=== PATIENT | male | born 1950 | race Caucasian/White ===

== ENCOUNTER 2018-04-23 17:38 | Inpatient (IN) ==
--- NOTE | 2018-04-23 18:15 | ED ---
HPI General Chief complaint: Respiratory Symptoms Stated complaint: SOB/Bilat swollen legs start mon Time Seen by Provider: 04/23/18 17:51 History of Present Illness HPI narrative: This patient complains of swelling in his legs and shortness of breath. Duration 3 days. Severity is moderate. He presents with A. fib with RVR with a rate of 160s. He does not have any chest pain pressure tightness or heaviness. No prior history of cardiac arrhythmia. No alleviating factors. No exacerbating factors. He is a 6 pack a day drinker and denies drug use. He was drinking earlier today. He is also cigarette smoker. Denies chronic lung disease Related Data Home Medications Medication Instructions Recorded Confirmed Unable to Obtain Home Meds 04/23/18 04/23/18 Allergies Allergy/AdvReac Type Severity Reaction Status Date / Time celecoxib Allergy Severe Tingling Verified 04/23/18 17:40 Review of Systems ROS: all other systems reviewed are negative PMFSH Medical History Medical History GERD (gastroesophageal reflux disease) (Acute) Gout (Acute) Hypertension (Acute) Social History Social History Substance History: No History of Abuse Smoking Status: Current every day smoker Tobacco Type: Cigarettes How Often Do You Have a Drink Containing Alcohol: 4 or more times a week Recent Travel in [facility] within the Last 8 Weeks: No Recent Out of Country Travel within the Last 8 Weeks: No Immunization History Tetanus Immunization: Unsure Hx Influenza Vaccine This Season: No Exam Narrative Exam Narrative: GENERAL: Well-nourished, well-developed patient with rapid A. fib . SKIN: Focused skin assessment reveals no rash and nodules. Skin is Warm and dry. HEAD: Atraumatic. Normocephalic. EYES: Pupils equal and round. No scleral icterus. No injection or drainage. ENT: No nasal bleeding or discharge. Mucous membranes pink and moist. NECK: Trachea midline. No JVD. CARDIOVASCULAR: Irregularly irregular rhythm. No murmur appreciated. Rate 160s RESPIRATORY: No accessory muscle use. Clear to auscultation. Breath sounds equal bilaterally. GASTROINTESTINAL: Abdomen soft, non-tender, nondistended. Hepatic and splenic margins not palpable. MUSCULOSKELETAL: No obvious deformities. No clubbing. No cyanosis. Symmetric edema the feet and ankles and lower clement areas without redness or warmth . NEUROLOGICAL: Awake and alert. No obvious cranial nerve deficits. Motor grossly within normal limits. Normal speech. PSYCHIATRIC: Appropriate mood and affect; insight and judgment normal. Course Initial Documented Vital Signs Temperature 97.4 F L 04/23/18 17:40 Pulse Rate 145 H 04/23/18 17:40 Respiratory Rate 24 04/23/18 17:40 Blood Pressure 129/97 H 04/23/18 17:40 Pulse Oximetry 95 04/23/18 17:40 Last Documented Vital Signs Temperature 97.4 F L 04/23/18 17:40 Pulse Rate 142 H 04/23/18 20:00 Respiratory Rate 18 04/23/18 20:00 Blood Pressure 137/91 H 04/23/18 20:00 Pulse Oximetry 93 L 04/23/18 20:00 Critical Care Time Critical Care Time: Yes Total Critical Care Time: 80 Attestation: Aggregate critical care time was 80 minutes. Time to perform other separately billable procedures was not included in the critical care time. My time did not include minutes spent treating any other patients simultaneously or on activities that did not directly contribute to the patient's treatment. The services I provided to this patient were to treat and/or prevent clinically significant deterioration that could result in: Cardiopulmonary arrest, myocardial injury, lethal cardiac arrhythmia I provided critical care services requiring my management, as noted below: Chart data review, documentation time, medication orders and management, vital sign assessments/reviewing monitor data, ordering and reviewing lab tests, ordering and interpreting/reviewing x-rays and diagnostic studies, care of the patient and discussion of the patient with the admitting physicians. Medical Decision Making MDM Narrative Medical decision making narrative: IV placed and labs sent. I gave him 20 mg IV Cardizem for rate control I reviewed his EKG which shows A. fib in the 160s I reviewed his chest x-ray shows a hint of pulmonary edema. Lab studies are normal other than his alcohol level of 230 After initial Cardizem dosing his heart rate is down to 140s but still elevated. I gave him a second IV Cardizem dose and I have now initiated a Cardizem drip which we will titrate. Patient will be in intensive care titrating on Cardizem drip. I have reviewed with the hospitalist. Multiple rechecks were necessary. Heart rate did not come down readily as hoped. Lab Data Lab results reviewed: Yes I reviewed the patient's lab results. Result diagrams: 04/23/18 18:05 04/23/18 18:05 Lab Results 04/23/18 04/23/18 Range/Units 18:05 18:05 CBC w Diff Auto diff final WBC 6.8 (4.0-11.0) th/mm3 RBC 4.10 L (4.50-5.90) mil/mm3 Hgb 13.9 (13.0-17.0) gm/dL Hct 42.0 (39.0-51.0) % MCV 102.4 H (80.0-100.0) fL MCH 34.0 (27.0-34.0) pg MCHC 33.2 (32.0-36.0) % RDW 14.6 (11.6-17.2) % Plt Count 226 (150-450) th/mm3 MPV 7.6 (7.0-11.0) fL Neut % (Auto) 59.5 (16.0-70.0) % Lymph % (Auto) 26.6 (9.0-44.0) % [place] % (Auto) 10.0 H (0.0-8.0) % Eos % (Auto) 0.9 (0.0-4.0) % Baso % (Auto) 3.0 H (0.0-2.0) % Neut # (Auto) 4.0 (1.8-7.7) th/mm3 Lymph # (Auto) 1.8 (1.0-4.8) th/mm3 [place] # (Auto) 0.7 (0.0-0.9) th/mm3 Eos # (Auto) 0.1 (0.0-0.4) th/mm3 Baso # (Auto) 0.2 (0.0-0.2) th/mm3 WBC Differential . Differential Comment . Sodium 141 (136-145) meq/L Potassium 4.1 (3.5-5.1) meq/L Chloride 106 (98-107) meq/L Carbon Dioxide 26.1 (21.0-32.0) meq/L Anion Gap 9 (5-15) meq/L BUN 17 (7-18) mg/dL Creatinine 0.84 (0.60-1.30) mg/dL Estimated GFR Greater than 89 (>89) mL/min Random Glucose 96 (74-106) mg/dL Calcium 8.1 L (8.5-10.1) mg/dL Total Creatine Kinase 243 (39-308) U/L CK-MB (CK-2) 1.3 (0.5-3.6) ng/mL Troponin I 0.04 (0.02-0.05) ng/mL Serum Alcohol 210 H (0-5) mg/dL Imaging Data Radiologist's impression: Chest X-Ray 04/23/18 18:00 CONCLUSION: Mild bibasilar airspace opacities. Discharge Plan Discharge Disposition Patient Disposition: 30 Still Patient Discharge Details Diagnosis: Atrial fibrillation with RVR, Alcohol intoxication Physicians Team ED Provider: Uriah Porras Primary Care Provider: Dequan Hernandez Rxs /Orders / Referrals /Forms Prescriptions: No Action Unable to Obtain Home Meds RF: 0 Discharge Interventions Interventions: Vital Signs Last Done: 04/23/18 20:00 Status ED Status: Admitted Patient
[2018-04-23 18:17] LABS: Baso # (Auto) 0.2 th/mm3 (0.0-0.2); Eos # (Auto) 0.1 th/mm3 (0.0-0.4); Eos % (Auto) 0.9 % (0.0-4.0); Hemoglobin 13.9 gm/dL (13.0-17.0); Lymph # (Auto) 1.8 th/mm3 (1.0-4.8); Lymph % (Auto) 26.6 % (9.0-44.0); Mean Corpuscular HGB Conc 33.2 % (32.0-36.0); Mean Corpuscular Volume 102.4 fL (80.0-100.0); Mean Platelet Volume 7.6 fL (7.0-11.0); Mono # (Auto) 0.7 th/mm3 (0.0-0.9); Neut % (Auto) 59.5 % (16.0-70.0); Platelet Count 226 th/mm3 (150-450); Red Cell Distribution Width 14.6 % (11.6-17.2); White Blood Count 6.8 th/mm3 (4.0-11.0)
[2018-04-23 18:25] LABS: Chloride 106 meq/L (98-107); Potassium 4.1 meq/L (3.5-5.1); Sodium 141 meq/L (136-145)
[2018-04-23 18:28] LABS: Calcium 8.1 mg/dL (8.5-10.1)
--- NOTE | 2018-04-23 18:28 | XR ---
EXAM DATE: 04/23/2018 6:15 PM EDT AGE/SEX: 67 years / Male INDICATIONS: Chest pain and shortness of breath. CLINICAL DATA: This is the patient's initial encounter. Patient reports that signs and symptoms have been present for 2 days and indicates a pain score of 5/10. MEDICAL/SURGICAL HISTORY: Hypertension. None. COMPARISON: No prior exams available for comparison. FINDINGS: Mild bibasilar infiltrate, right more so the left. Early or mild pneumonia possible in the proper cli nical setting. No pleural effusion. No pneumothorax. Heart size within normal limits. CONCLUSION: Mild bibasilar airspace opacities. Electronically signed by: Ken Velazquez MD 04/23/2018 6:26 PM EDT
[2018-04-23 18:29] LABS: Anion Gap 9 meq/L (5-15); Blood Urea Nitrogen 17 mg/dL (7-18); Carbon Dioxide 26.1 meq/L (21.0-32.0); Glucose,Random 96 mg/dL (74-106)
[2018-04-23 18:32] LABS: Glomerular Filtration Rate Greater Than 89 mL/min (>89)
[2018-04-23 18:35] LABS: Creatine Kinase 243 U/L (39-308)
[2018-04-23 18:37] LABS: Troponin I 0.04 ng/mL (0.02-0.05)
[2018-04-23 18:40] LABS: Alcohol 210 mg/dL (0-5)
[2018-04-23 18:53] LABS: Creatine Kinase MB 1.3 ng/mL (0.5-3.6)
[2018-04-23] MEDS: dilTIAZem Inj 125 MG in Sodium Chlor 0.9% Inj 100 ML IV.CONT PRN (19:45)
[2018-04-23 20:32] LABS: Magnesium 2.3 mg/dL (1.5-2.5)
[2018-04-23] MEDS: Enoxaparin Inj 100 MG/ML Syringe SQ SCH (20:45)
--- NOTE | 2018-04-23 21:58 | ECG ---
Date Performed: 04/23/2018 Time Performed: 17:54:27 PTAGE: 67 years EKG: ATRIAL FIBRILLATION WITH RAPID VENTRICULAR RESPONSE NONSPECIFIC ST & T-WAVE ABNORMALITY ABN ORMAL RHYTHM ECG PREVIOUS TRACING : 09/30/2013 03.02 Compared to previous tracing, SR no longer present DOCTOR: Kate Dickson Interpretating Date/Time 04/23/2018 21:56:51
[2018-04-23] MEDS: LORazepam 1 MG Tablet PO PRN (23:05)
[2018-04-23] MEDS: Metoprolol Inj 5 MG/5 ML Vial IV.PUSH PRN ×2 (23:45→23:52)
[2018-04-24] MEDS: Metoprolol Inj 5 MG/5 ML Vial IV.PUSH PRN ×3 (00:12→04:22)
[2018-04-24] MEDS: LORazepam 1 MG Tablet PO PRN (02:58)
[2018-04-24] MEDS: dilTIAZem Inj 125 MG in Sodium Chlor 0.9% Inj 100 ML IV.CONT PRN (03:03)
[2018-04-24] MEDS ORDERED: Metoprolol Tartrate 25 MG Tablet PO ONE (03:35)
[2018-04-24 05:45] LABS: Chloride 105 meq/L (98-107); Potassium 4.1 meq/L (3.5-5.1); Sodium 140 meq/L (136-145)
[2018-04-24 05:47] LABS: Calcium 7.9 mg/dL (8.5-10.1)
[2018-04-24 05:48] LABS: Anion Gap 8 meq/L (5-15); Blood Urea Nitrogen 16 mg/dL (7-18); Glucose,Random 103 mg/dL (74-106)
[2018-04-24 05:51] LABS: Glomerular Filtration Rate Greater Than 89 mL/min (>89)
[2018-04-24 05:56] LABS: Hematocrit 37.8 % (39.0-51.0); Hemoglobin 12.6 gm/dL (13.0-17.0); Mean Corpuscular HGB Conc 33.5 % (32.0-36.0); Mean Corpuscular Hemoglobin 34.3 pg (27.0-34.0); Mean Corpuscular Volume 102.5 fL (80.0-100.0); Mean Platelet Volume 7.8 fL (7.0-11.0); Platelet Count 209 th/mm3 (150-450); Red Blood Count 3.69 mil/mm3 (4.50-5.90); Red Cell Distribution Width 14.5 % (11.6-17.2); White Blood Count 7.3 th/mm3 (4.0-11.0)
--- NOTE | 2018-04-24 08:06 | P.HPIM ---
History of Present Illness Primary Care Physician: Dequan Hernandez MD Chief Complaint: Shortness of breath and edema History of Present Illness: This patient is a 67-year-old woman with a history of hypertension who admits increased shortness of breath and edema in the lower extremity for the last 3 days. Was severe enough for him to come to the hospital. He had no previous episodes of this and no cardiac history other than hypertension. He drinks quite a bit of alcohol daily and admits he has been trying to "cut back". Patient denies any chest pain or tightness. He has not had any syncopal episodes and comes to the emergency room for further evaluation. On my review of his x-ray there is quite a bit of vascular congestion. His EKG on my review does show atrial fibrillation with rapid ventricular response. Overnight he has been on Cardizem and appears to have improvement in his cardiac rate but still is quite edematous and shortness of breath with 93% on 2 L nasal cannula. Patient been admitted to the hospital for these reasons. - Diagnosis (1) Atrial fibrillation with RVR (2) Alcohol intoxication Inpatient Certification: I certify that the inpatient services were ordered in accordance with Medicare regulations governing the order. This includes certification that hospital inpatient services are reasonable and necessary and in the case of services not specified as inpatient-only under 42 CFR 419.22(n), that they are appropriately provided as inpatient services in accordance to with the 2-midnight benchmark under 43 CFR 412.3(e) Estimated Total Length of Stay (Days): 2 Plans for Post Hospital Care: Not yet determined [facility] - History History Provided By: Patient - Medical History Medical History: Medical History (Last Reviewed 04/24/18 @ 08:00 by Laney Garcia MD) Denies alcohol consumption GERD (gastroesophageal reflux disease) Gout Hypertension - Surgical History Surgical History: Surgical History (Last Updated 04/24/18 @ 08:01 by Laney Garcia MD) No history of previous surgery - Family History Family History: Family History (Last Updated 04/24/18 @ 08:01 by Laney Garcia MD) Other Afib CVA (cerebral vascular accident) - Tobacco History Second Hand Smoke Exposure: No Tobacco Use In Past 30 Days: Yes Smoking Status: Current every day smoker Tobacco Type: Cigarettes - Alcohol History How Often Do You Have a Drink Containing Alcohol: 4 or more times a week (1/5 of vodka) - Substance Use History Substance History: Active Abuse - Substance Use Type Alcohol Status: Active Route Used: By Mouth Reason for Use: Calm Down - Travel History Recent Travel in the [place] Within the Last 8 Weeks: No Recent Travel Out of the Country Within the Last 8 Weeks: No - Immunization History Tetanus Immunization: Unsure Hx Influenza Vaccine This Season: No Medications and Allergies Active Medications: Active Medications Clonidine HCl (Catapres) 0.1 mg PO Q6H PRN PRN Reason: For SBP >/= 180, DBP >/= 100 Enoxaparin Sodium (Lovenox Inj) 100 mg SQ Q12H IDALIA Last Admin: 04/23/18 20:45 Dose: 100 mg Flumazenil (Romazecon Inj) 0.2 mg IV.PUSH Q1M PRN PRN Reason: OVERSEDATION Folic Acid (Folic Acid) 1 mg PO DAILY [facility] Stop: 04/29/18 08:59 Haloperidol Lactate (Haldol Inj) 1 mg IV.PUSH Q15M PRN PRN Reason: for severe agitation Diltiazem HCl 125 mg/ Sodium (Chloride) 125 mls @ 5 mls/hr IV.CONT TITRATE PRN ; Protocol PRN Reason: Per Protocol Last Admin: 04/24/18 03:03 Dose: 15 mg/hr, 15 mls/hr Lorazepam (Ativan) 1 mg PO Q4H PRN PRN Reason: for CIWA 8-10 Last Admin: 04/24/18 02:58 Dose: 1 mg Lorazepam (Ativan) 2 mg PO Q2H PRN PRN Reason: for CIWA 11-14 Last Admin: 04/24/18 06:36 Dose: 2 mg Lorazepam (Ativan Inj) 2 mg IV.PUSH Q2H PRN PRN Reason: for CIWA 11-14 Lorazepam (Ativan Inj) 2 mg IV.PUSH Q1H PRN PRN Reason: for CIWA 15-20 Lorazepam (Ativan Inj) 2 mg IV.PUSH Q15M PRN PRN Reason: for CIWA > 20 Lorazepam (Ativan Inj) 1 mg IV.PUSH Q4H PRN PRN Reason: for CIWA 8-10 Metoprolol Tartrate (Lopressor) 25 mg PO BID [facility] Multivitamins/Minerals (Theragran-M) 1 tab PO DAILY IDALIA Stop: 04/29/18 08:59 Sodium Chloride (Ns Flush) 2 ml IV.FLUSH PRN PRN PRN Reason: FLUSH AFTER USING IV ACCESS Sodium Chloride (Ns Flush) 2 ml IV.FLUSH BID IDALIA Last Admin: 04/23/18 23:07 Dose: Not Given Thiamine HCl (Vitamin B1) 100 mg PO DAILY IDALIA Allergies Allergy/AdvReac Type Severity Reaction Status Date / Time celecoxib Allergy Severe Tingling Verified 04/23/18 17:40 Home Medications Medication Instructions Recorded Confirmed Type Unable to Obtain Home Meds 04/23/18 04/23/18 History Exam Vital signs: Vital Signs 04/23/18 17:40 04/23/18 17:59 04/23/18 18:40 Temperature 97.4 F L Pulse Rate 145 H 168 H 140 H Respiratory Rate 24 20 20 Blood Pressure 129/97 H 171/86 H 109/98 H Pulse Oximetry 95 98 96 04/23/18 19:00 04/23/18 20:00 04/23/18 20:18 Temperature Pulse Rate 148 H 142 H 137 H Respiratory Rate 18 18 18 Blood Pressure 117/91 H 137/91 H 100/70 Pulse Oximetry 98 93 L 95 04/23/18 21:00 04/23/18 22:47 04/23/18 23:21 Temperature 98.7 F Pulse Rate 139 H 153 H 165 H Respiratory Rate 18 22 22 Blood Pressure 99/55 L 164/89 H 164/89 H Pulse Oximetry 94 L 94 L 94 L 04/23/18 23:22 04/24/18 00:00 04/24/18 00:50 Temperature 98.7 F Pulse Rate 165 H 125 H 118 H Respiratory Rate 22 22 Blood Pressure 111/74 107/65 Pulse Oximetry 94 L 04/24/18 01:00 04/24/18 01:30 04/24/18 02:00 Temperature Pulse Rate 114 H 114 H 114 H Respiratory Rate 31 H 34 H 24 Blood Pressure 102/73 107/65 125/89 Pulse Oximetry 92 L 93 L 93 L 04/24/18 03:00 04/24/18 04:00 04/24/18 04:23 Temperature Pulse Rate 124 H 120 H 116 H Respiratory Rate 26 H 25 H Blood Pressure 116/79 114/83 117/81 Pulse Oximetry 91 L 92 L 94 L 04/24/18 04:28 04/24/18 04:41 04/24/18 05:00 Temperature Pulse Rate 112 H 102 H 109 H Respiratory Rate 20 20 20 Blood Pressure 128/82 128/72 126/83 Pulse Oximetry 96 95 95 04/24/18 06:01 04/24/18 07:36 Temperature Pulse Rate 112 H Respiratory Rate 26 H Blood Pressure 140/90 Pulse Oximetry 95 Intake & Output 04/23/18 04/24/18 04/24/18 18:59 06:59 18:59 Intake Total 125 / 125 Output Total 500 / 500 Balance -375 / -375 Weight 100 kg 101.5 kg Intake: IV 125 / 125 Cardizem Inj 125 MG In NS Inj 125 / 125 100 ML @ 5 MG/HR 5 mls/hr IV. CONT TITRATE PRN Rx#:[id number] Output: Urine 500 / 500 Other: Date of Last Bowel Movement 04/23/18 Weight On Admission 100 kg Narrative: GENERAL: Well-nourished, well-developed patient. Complaining of shortness of breath SKIN: Warm and dry. HEAD: Normocephalic. EYES: No scleral icterus. No injection or drainage. NECK: Supple, trachea midline. No JVD or lymphadenopathy. CARDIOVASCULAR: Atrial fibrillation with rapid ventricular response, no gallops or rubs appreciated, systolic murmur RESPIRATORY: Crackles in the bases bilaterally GASTROINTESTINAL: Abdomen soft, non-tender, nondistended. MUSCULOSKELETAL: No cyanosis, there is +3 bilateral lower extremity edema BACK: Nontender without obvious deformity. No CVA tenderness. NEUROLOGICAL: Awake and alert. Cranial nerves II through XII intact. Motor and sensory grossly within normal limits. Five out of 5 muscle strength in all muscle groups. Normal speech. Results - Labs CBC & Chem 7: 04/24/18 04:58 04/24/18 04:58 Labs: Short CBC 04/23/18 04/24/18 Range/Units 18:05 04:58 WBC 6.8 7.3 (4.0-11.0) th/mm3 Hgb 13.9 12.6 L (13.0-17.0) gm/dL Hct 42.0 37.8 L (39.0-51.0) % Plt Count 226 209 (150-450) th/mm3 BMP 04/23/18 04/24/18 18:05 04:58 Sodium 141 140 Potassium 4.1 4.1 Chloride 106 105 Carbon Dioxide 26.1 27.0 BUN 17 16 Creatinine 0.84 0.74 Calcium 8.1 L 7.9 L Cardiac Enzymes 04/23/18 Range/Units 18:05 Total Creatine Kinase 243 (39-308) U/L CK-MB (CK-2) 1.3 (0.5-3.6) ng/mL Troponin I 0.04 (0.02-0.05) ng/mL - Imaging Impressions Chest X-Ray 04/23/18 18:00 CONCLUSION: Mild bibasilar airspace opacities. Caprini VTE Risk Assessment Caprini VTE Risk Assessment: Moderate/High Risk (score >= 2) Caprini Risk Assessment Model: Point Value = 1 Point Value = 2 Point Value = 3 Point Value = 5 Age 41-60 Minor surgery BMI > 25 kg/m2 Swollen legs Varicose veins or History of unexplained or recurrent spontaneous Oral contraceptives or hormone replacement Sepsis (< 1 month) Serious lung disease, including pneumonia (< 1 month) Abnormal pulmonary function Acute myocardial infarction Congestive heart failure (< 1 month) History of inflammatory bowel disease Medical patient at bed rest Age 61-74 Arthroscopic surgery Major open surgery (> 45 min) Laparoscopic surgery (> 45 min) Malignancy Confined to bed (> 72 hours) Immobilizing plaster cast Central venous access Age >= 75 History of VTE Family history of VTE Factor V Leiden Prothrombin [id number] Lupus anticoagulant Anticardiolipin antibodies Elevated serum homocysteine Heparin-induced thrombocytopenia Other congenital or acquired thrombophilia Stroke (< 1 month) Elective arthroplasty Hip, pelvis, or leg fracture Acute spinal cord injury (< 1 month) Prophylaxis Regimen: Total Risk Factor Score Risk Level Prophylaxis Regimen 0-1 Low Early ambulation 2 Moderate Order ONE of the following: *Sequential Compression Device (SCD) *Heparin 5000 units SQ BID 3-4 Higher Order ONE of the following medications: *Heparin 5000 units SQ TID *Enoxaparin/Lovenox 40 mg SQ daily (WT < 150 kg, CrCl > 30 mL/min) *Enoxaparin/Lovenox 30 mg SQ daily (WT < 150 kg, CrCl > 10-29 mL/min) *Enoxaparin/Lovenox 30 mg SQ BID (WT < 150 kg, CrCl > 30 mL/min) AND/OR *Sequential Compression Device (SCD) 5 or more Highest Order ONE of the following medications: *Heparin 5000 units SQ TID (Preferred with Epidurals) *Enoxaparin/Lovenox 40 mg SQ daily (WT < 150 kg, CrCl > 30 mL/min) *Enoxaparin/Lovenox 30 mg SQ daily (WT < 150 kg, CrCl > 10-29 mL/min) *Enoxaparin/Lovenox 30 mg SQ BID (WT < 150 kg, CrCl > 30 mL/min) AND *Sequential Compression Device (SCD) Assessment and Plan - Assessment (1) Atrial fibrillation with RVR Code(s): I48.91 - Unspecified atrial fibrillation Status: Acute Plan: Seen with new onset atrial fibrillation which appears to be improved on the diltiazem with oral Lopressor, heart rates in the low 100s. Patient admits drinking alcohol daily despite being on medication "to stop drinking alcohol ". He has never had cardiac problems other than hypertension. We will continue with titrating medications for blood pressure, follow-up echocardiogram for edema and continue to diurese Cardiology consultation pending Follow-up electrolytes (2) Alcohol intoxication Code(s): F10.929 - Alcohol use, unspecified with intoxication, unspecified Status: Acute Plan: Alcohol level 210 on arrival, continue with CIWA protocol This may contribute to his atrial fibrillation and edema, workup in progress - Plan Discharge Planning: Transfer to intermediate critical care H&P: Quality - VTE Deep Vein Thrombosis/Pulmonary Embolism Present on Admission: No (2) Alcohol intoxication Qualifiers: Complication of substance-induced condition: with unspecified complication Qualified Code(s): F10.929 - Alcohol use, unspecified with intoxication, unspecified
[2018-04-24] MEDS ORDERED: Metoprolol Tartrate 25 MG Tablet PO SCH (09:00)
[2018-04-24] MEDS: Enoxaparin Inj 100 MG/ML Syringe SQ SCH ×2 (09:25→20:51)
[2018-04-24] MEDS: Allopurinol 300 MG Tablet PO SCH (09:25)
[2018-04-24] MEDS: Multivitamin/Minerals Therapeutic Tablet PO SCH (09:25)
[2018-04-24] MEDS: Folic Acid 1 MG Tablet PO SCH (09:26)
--- NOTE | 2018-04-24 18:35 | MB ---
cc: Anabel Singleton MD DATE: 04/24/2018 REASON FOR CONSULTATION: Atrial fibrillation with rapid ventricular response. HISTORY OF PRESENT ILLNESS: Mr. Vaughn is a 67-year-old man who presented to the emergency room with shortness of breath and lower extremity edema over the last 3 days. He denies any prior cardiac history beyond hypertension. He did follow with Dr. Gibson back in 2009 for a mildly abnormal stress test. The patient was found to have atrial fibrillation with rapid ventricular rate on presentation and Cardiology was subsequently consulted. The patient is a bit lethargic now. The history is per the records. ALLERGIES: CELEBREX AND PEPCID. CURRENT MEDICATIONS: Per the record. PAST MEDICAL HISTORY: Significant for chest pain, GERD, gout, hypertension, and tobacco use. FAMILY HISTORY: Positive for atrial fibrillation. SOCIAL HISTORY: The patient is a former smoker and is . REVIEW OF SYSTEMS: Unable. PHYSICAL EXAMINATION: VITAL SIGNS: 122, 30, 132/80. GENERAL: He is an overweight man. He is in no apparent distress. He is a bit lethargic. NECK: Free from JVD. LUNGS: Quite decreased. CARDIOVASCULAR: He has an irregular, tachycardic rhythm. ABDOMEN: Soft. EXTREMITIES: Have 1+ edema. Telemetry - shows atrial fibrillation with rapid ventricular rate. LABORATORY VALUES: Significant for a BNP of 254 and creatinine of 0.84. IMAGING STUDIES: Chest x-ray shows mild bibasilar airspace opacities. IMPRESSION AND RECOMMENDATIONS: Atrial fibrillation - the patient does have rapid ventricular rate. I do agree with starting him on the beta chrissy for long-term control, particularly as we do not have his ejection fraction yet. Additionally, the Cardizem is still running GTT. The patient is on Lovenox for anticoagulation. This etiology of the atrial fibrillation is not overtly clear as he does have a family history, alcohol abuse, and hypertension. ETOH - this is being managed by the primary team. Edema - patient may have some mild heart failure with the elevated BNP and edema. Conservative measures at this time while we await the results of the echo. MD SHEYLA Santos/SADAF , 06:17 PM , 06:24 PM
[2018-04-24] MEDS: Metoprolol Tartrate 25 MG Tablet PO SCH ×2 (19:11→21:30)
--- NOTE | 2018-04-24 19:46 | ECHRPT ---
Indication: Persistent atrial fibrillation CONCLUSIONS The left ventricular systolic function is low normal with an estimated ejection fraction in the rang e of 50- 55%. Wall thickness is measured at the upper limits of normal. Normal left ventricular size. Mild mitral annular thickening. Aortic valve is not well visualized. TV is poorly visualized. The pulmonary valve is not well visualized. The inferior vena cava is not visualized. BP: / HR: Rhythm: Atrial fibrillation MEASUREMENTS (Male / Female) Normal Values Technical Quality:Poor 2D ECHO LV Diastolic Diameter PLAX 4.8 cm 4.2 - 5.9 / 3.9 - 5.3 cm LV Systolic Diameter PLAX 3.8 cm IVS Diastolic Thickness 1.1 cm 0.6 - 1.0 / 0.6 - 0.9 cm LVPW Diastolic Thickness 1.1 cm 0.6 - 1.0 / 0.6 - 0.9 cm LV Relative Wall Thickness 0.4 LVOT Diameter 2.0 cm M-MODE Aortic Root Diameter MM 2.8 cm LA Systolic Diameter MM 3.9 cm LA Ao Ratio MM 1.4 AV Cusp Separation MM 2.0 cm DOPPLER AV Peak Velocity 162.0 cm/s AV Peak Gradient 10.5 mmHg LVOT Peak Velocity 80.9 cm/s LVOT Peak Gradient 2.6 mmHg AV Area Cont Eq pk 1.6 cm Mitral E Point Velocity 95.8 cm/s FINDINGS LEFT VENTRICLE The left ventricular systolic function is low normal with an estimated ejection fraction in the rang e of 50- 55%. Wall thickness is measured at the upper limits of normal. Normal left ventricular size. RIGHT VENTRICLE Normal right ventricular size and systolic function. LEFT ATRIUM The left atrial size is normal. RIGHT ATRIUM The right atrial size is normal. ATRIAL SEPTUM Normal atrial septal thickness without atrial level shunting by limited color doppler interrogation. AORTA The aortic root and proximal ascending aorta are normal in size on limited imaging. MITRAL VALVE No mitral valve stenosis or regurgitation. Mild mitral annular thickening. AORTIC VALVE Aortic valve is not well visualized. No aortic valve stenosis or regurgitation. TRICUSPID VALVE TV is poorly visualized. No tricuspid valve stenosis or regurgitation. PULMONARY VALVE The pulmonary valve is not well visualized. VESSELS The inferior vena cava is not visualized. PERICARDIUM No pericardial effusion. Garland Yi MD (Electronically Signed) Final Date:24 April 2018 19:45
[2018-04-24] MEDS: Haloperidol Inj 5 MG/ML Ampul IV.PUSH PRN ×2 (21:30→23:15)
[2018-04-25] MEDS: Haloperidol Inj 5 MG/ML Ampul IV.PUSH PRN (01:36)
[2018-04-25] MEDS: dilTIAZem Inj 125 MG in Sodium Chlor 0.9% Inj 100 ML IV.CONT PRN ×3 (04:31→21:19)
[2018-04-25] MEDS: Metoprolol Inj 5 MG/5 ML Vial IV.PUSH PRN ×3 (04:31→04:59)
[2018-04-25] MEDS: Metoprolol Tartrate 25 MG Tablet PO SCH (06:50)
--- NOTE | 2018-04-25 08:03 | P.PNCA ---
Subjective Interval history: PT sedated Physical Exam Vital signs: Vital Signs 04/24/18 08:30 04/24/18 09:00 04/24/18 09:30 Temperature Pulse Rate 108 H 112 H 112 H Respiratory Rate 27 H 37 H 61 H Blood Pressure 124/88 123/68 134/86 Pulse Oximetry 94 L 93 L 94 L 04/24/18 10:00 04/24/18 10:30 04/24/18 11:00 Temperature 98.8 F Pulse Rate 110 H 116 H 116 H Respiratory Rate 27 H 21 24 Blood Pressure 108/62 122/74 98/51 L Pulse Oximetry 94 L 92 L 04/24/18 11:30 04/24/18 12:00 04/24/18 12:28 Temperature Pulse Rate 112 H 112 H 112 H Respiratory Rate 28 H 34 H 36 H Blood Pressure 94/73 L 75/63 L Pulse Oximetry 91 L 91 L 04/24/18 12:32 04/24/18 13:00 04/24/18 13:30 Temperature Pulse Rate 118 H 112 H 114 H Respiratory Rate 41 H 57 H 50 H Blood Pressure 142/95 H 120/67 120/67 Pulse Oximetry 04/24/18 14:00 04/24/18 14:02 04/24/18 14:59 Temperature 98.2 F Pulse Rate 116 H 124 H 118 H Respiratory Rate 32 H 34 H 32 H Blood Pressure 131/63 115/85 Pulse Oximetry 99 99 95 04/24/18 15:00 04/24/18 16:00 04/24/18 16:23 Temperature Pulse Rate 118 H 118 H 120 H Respiratory Rate 32 H 30 H 22 Blood Pressure 118/83 Pulse Oximetry 94 L 97 98 04/24/18 16:59 04/24/18 17:00 04/24/18 17:59 Temperature Pulse Rate 120 H 122 H 134 H Respiratory Rate 30 H 30 H 39 H Blood Pressure 137/86 140/79 Pulse Oximetry 96 97 96 04/24/18 18:00 04/24/18 19:00 04/24/18 19:45 Temperature Pulse Rate 132 H 136 H Respiratory Rate 39 H 35 H Blood Pressure 165/83 H Pulse Oximetry 95 96 95 04/24/18 20:00 04/24/18 20:04 04/24/18 20:14 Temperature 98.6 F Pulse Rate 148 H 144 H 142 H Respiratory Rate 37 H 32 H Blood Pressure 158/92 H 146/98 H Pulse Oximetry 95 93 L 97 04/24/18 21:00 04/24/18 22:04 04/24/18 23:04 Temperature Pulse Rate 150 H 144 H 142 H Respiratory Rate 24 36 H 29 H Blood Pressure 166/92 H 142/78 H 139/104 H Pulse Oximetry 95 96 94 L 04/25/18 00:06 04/25/18 01:00 04/25/18 01:18 Temperature 97.6 F Pulse Rate 128 H 132 H Respiratory Rate 32 H 22 Blood Pressure 108/65 132/99 H Pulse Oximetry 96 95 95 04/25/18 03:04 04/25/18 03:53 04/25/18 04:04 Temperature Pulse Rate 140 H 152 H 146 H Respiratory Rate 29 H 22 33 H Blood Pressure 124/78 124/78 139/85 Pulse Oximetry 96 95 97 04/25/18 04:56 04/25/18 05:00 04/25/18 06:00 Temperature Pulse Rate 121 H 118 H 108 H Respiratory Rate 26 H 22 Blood Pressure 118/72 104/68 104/68 Pulse Oximetry 98 97 97 Intake & Output 04/24/18 04/25/18 04/25/18 18:59 06:59 18:59 Intake Total 685 / 685 Output Total 510 / 510 1050 / 1050 Balance 175 / 175 -1050 / -1050 Weight 97.5 kg Intake: IV 125 / 125 Cardizem Inj 125 MG In NS Inj 125 / 125 100 ML @ 5 MG/HR 5 mls/hr IV. CONT TITRATE PRN Rx#:[id number] Oral 560 / 560 Output: Urine 510 / 510 1050 / 1050 Other: Date of Last Bowel Movement 04/24/18 04/24/18 # Bowel Movements 2 - Routine Respiratory Exam Present: CTA bilaterally - Routine Cardiovascular Exam Present: irregularly irregular - Routine Extremities Exam Comments: no edema - Urinary Catheter Management Indwelling Urethral Catheter Cath placed during this visit: yes Reason for continuing: Gross Hematuria Insertion date: 04/25/18 Insertion time: 01:12 Assessment and Plan - Plan AF- fair rate control on metoprolol and dilt gtt -increase PO metoprolol and wean dilt -ECHO EF normal ETOH- [per primary team
[2018-04-25] MEDS: Folic Acid 1 MG Tablet PO SCH (08:21)
[2018-04-25] MEDS: Multivitamin/Minerals Therapeutic Tablet PO SCH (08:27)
[2018-04-25] MEDS: Allopurinol 300 MG Tablet PO SCH (08:27)
[2018-04-25] MEDS: Enoxaparin Inj 100 MG/ML Syringe SQ SCH ×2 (08:28→21:17)
[2018-04-25] MEDS: LORazepam 1 MG Tablet PO PRN (09:27)
[2018-04-25] MEDS: Metoprolol Tartrate 50 MG Tablet PO SCH ×3 (09:27→21:18)
--- NOTE | 2018-04-25 09:59 | P.PNIM ---
Subjective Interval history: Patient seen and evaluated today in follow-up for atrial fibrillation, new onset and for alcohol withdrawal with some hallucinations today. Still has required quite a bit of Ativan. Discussed with spouse at bedside. Patient did have Garcia trauma yesterday because of pulling it out. Had a blood irrigation done and is currently clear Physical Exam Vital signs: Vital Signs 04/24/18 10:00 04/24/18 10:30 04/24/18 11:00 Temperature 98.8 F Pulse Rate 110 H 116 H 116 H Respiratory Rate 27 H 21 24 Blood Pressure 108/62 122/74 98/51 L Pulse Oximetry 94 L 92 L 04/24/18 11:30 04/24/18 12:00 04/24/18 12:28 Temperature Pulse Rate 112 H 112 H 112 H Respiratory Rate 28 H 34 H 36 H Blood Pressure 94/73 L 75/63 L Pulse Oximetry 91 L 91 L 04/24/18 12:32 04/24/18 13:00 04/24/18 13:30 Temperature Pulse Rate 118 H 112 H 114 H Respiratory Rate 41 H 57 H 50 H Blood Pressure 142/95 H 120/67 120/67 Pulse Oximetry 04/24/18 14:00 04/24/18 14:02 04/24/18 14:59 Temperature 98.2 F Pulse Rate 116 H 124 H 118 H Respiratory Rate 32 H 34 H 32 H Blood Pressure 131/63 115/85 Pulse Oximetry 99 99 95 04/24/18 15:00 04/24/18 16:00 04/24/18 16:23 Temperature Pulse Rate 118 H 118 H 120 H Respiratory Rate 32 H 30 H 22 Blood Pressure 118/83 Pulse Oximetry 94 L 97 98 04/24/18 16:59 04/24/18 17:00 04/24/18 17:59 Temperature Pulse Rate 120 H 122 H 134 H Respiratory Rate 30 H 30 H 39 H Blood Pressure 137/86 140/79 Pulse Oximetry 96 97 96 04/24/18 18:00 04/24/18 19:00 04/24/18 19:45 Temperature Pulse Rate 132 H 136 H Respiratory Rate 39 H 35 H Blood Pressure 165/83 H Pulse Oximetry 95 96 95 04/24/18 20:00 04/24/18 20:04 04/24/18 20:14 Temperature 98.6 F Pulse Rate 148 H 144 H 142 H Respiratory Rate 37 H 32 H Blood Pressure 158/92 H 146/98 H Pulse Oximetry 95 93 L 97 04/24/18 21:00 04/24/18 22:04 04/24/18 23:04 Temperature Pulse Rate 150 H 144 H 142 H Respiratory Rate 24 36 H 29 H Blood Pressure 166/92 H 142/78 H 139/104 H Pulse Oximetry 95 96 94 L 04/25/18 00:06 04/25/18 01:00 04/25/18 01:18 Temperature 97.6 F Pulse Rate 128 H 132 H Respiratory Rate 32 H 22 Blood Pressure 108/65 132/99 H Pulse Oximetry 96 95 95 04/25/18 03:04 04/25/18 03:53 04/25/18 04:04 Temperature Pulse Rate 140 H 152 H 146 H Respiratory Rate 29 H 22 33 H Blood Pressure 124/78 124/78 139/85 Pulse Oximetry 96 95 97 04/25/18 04:56 04/25/18 05:00 04/25/18 06:00 Temperature Pulse Rate 121 H 118 H 108 H Respiratory Rate 26 H 22 Blood Pressure 118/72 104/68 104/68 Pulse Oximetry 98 97 97 04/25/18 08:00 04/25/18 09:00 Temperature 97.7 F 98.4 F Pulse Rate Respiratory Rate Blood Pressure Pulse Oximetry Intake & Output 04/24/18 04/25/18 04/25/18 18:59 06:59 18:59 Intake Total 685 / 685 240 / 240 Output Total 510 / 510 1050 / 1050 1000 / 1000 Balance 175 / 175 -1050 / -1050 -760 / -760 Weight 97.5 kg Intake: IV 125 / 125 Cardizem Inj 125 MG In NS Inj 125 / 125 100 ML @ 5 MG/HR 5 mls/hr IV. CONT TITRATE PRN Rx#:[id number] Oral 560 / 560 240 / 240 Output: Urine 510 / 510 1050 / 1050 1000 / 1000 Other: Date of Last Bowel Movement 04/24/18 04/24/18 # Bowel Movements 2 - Urinary Catheter Management Indwelling Urethral Catheter Cath placed during this visit: yes Reason for continuing: Gross Hematuria Insertion date: 04/25/18 Insertion time: 01:12 Results - Labs CBC & Chem 7: 04/24/18 04:58 04/24/18 04:58 Laboratory Results - last 24 hr 04/25/18 08:16 POC Glucose 129 H Assessment and Plan - Assessment (1) Atrial fibrillation with RVR Code(s): I48.91 - Unspecified atrial fibrillation Status: Acute Plan: Seen with new onset atrial fibrillation which appears to be improved on the diltiazem gtt with oral increased Lopressor, Patient also appears to be going through DTs which may give him some tachycardia Echo unremarkable but poor quality Continue Lovenox Wean diltiazem (2) Alcohol intoxication Code(s): F10.929 - Alcohol use, unspecified with intoxication, unspecified Status: Acute Plan: Now going through withdrawal. Discussed with at bedside. Patient has been in rehab prior to this. She is interested in further rehab efforts. This time will continue with evaluation for a [facility] protocol Continue with supportive care (3) Hematuria Code(s): R31.9 - Hematuria, unspecified Status: Acute Plan: Patient did pull out his urinary catheter overnight Bladder irrigation has cleared Urology consult pending - Plan Discharge Planning: Transfer to intermediate critical care (2) Alcohol intoxication Qualifiers: Complication of substance-induced condition: with unspecified complication Qualified Code(s): F10.929 - Alcohol use, unspecified with intoxication, unspecified
--- NOTE | 2018-04-25 21:42 | MB ---
cc: Negro Zepeda MD DATE: 04/25/2018 REASON FOR CONSULTATION: 1. Gross hematuria following traumatic Garcia catheter. 2. History of prostate cancer. HISTORY OF PRESENT ILLNESS: The patient is a 67-year-old male with a history of prostate cancer, status post external beam radiation in the past, who was admitted with alcohol intoxication and DTs. Last night, he had a Garcia catheter placed due to having DTs and being in the ICU. Overnight last night, he became confused and acutely pulled on his Garcia catheter and ripped it out, causing a significant amount of blood in his urine. A fresh 3-way Garcia catheter was then placed and the patient was started on CBI. Since that time, his urine has cleared up and currently draining clear yellow urine. The patient is lethargic and confused and is not the best historian, but has been seen by Dr. Hernandez in the past for his prostate cancer, but not recently. The patient denies having previous blood in his urine. He also denies a history of urinary tract infections or kidney stones. Currently, he denies abdominal pain, flank pain, fevers, chills, nausea, vomiting. PAST MEDICAL HISTORY: Significant for prostate cancer, GERD, gout, hypertension. PAST SURGICAL HISTORY: Circumcision. FAMILY HISTORY: Denies urolithiasis or genitourinary malignancies. CURRENT MEDICATIONS: Include allopurinol, Bumex, folic acid, lorazepam, Lovenox, Protonix. ALLERGIES: CELEBREX. REVIEW OF SYSTEMS: See HPI. All other systems reviewed and otherwise are negative. PHYSICAL EXAMINATION: VITAL SIGNS: Temperature 97.7, pulse 100, BP 120/70, respiratory rate 22, saturating 97% on room air. GENERAL: He is awake and alert but confused, in no apparent distress, answers questions appropriately. HEAD: Normocephalic, atraumatic. EYES: No scleral icterus. Extraocular muscles intact. NECK: Supple. Trachea is midline. No JVD. LUNGS: Clear to auscultation bilaterally. No wheezes, rales or rhonchi. HEART: Irregularly irregular. No murmurs, gallops or rubs. ABDOMEN: Soft, nontender, nondistended. Positive bowel sounds. GENITOURINARY: No CVA tenderness bilaterally. His penis is circumcised. Testes are descended bilaterally and of normal size and consistency without mass. RECTAL: Not indicated. EXTREMITIES: Nontender. No clubbing, cyanosis or edema. PSYCHIATRIC: Flat affect. NEUROLOGIC: Cranial nerves 2-12 intact. Strength is 5/5 in all 4 extremities. SKIN: No ulcers or rashes and appears to be warm and dry. LABORATORY DATA: White count 7.3, hemoglobin 12.6, hematocrit 37.8, platelet count 209. Sodium 140, potassium 4.1, chloride 105, bicarbonate 27, BUN 16, creatinine 0.74. ASSESSMENT: The patient is a 67-year-old male with a history of prostate cancer, status post external beam radiation therapy, with gross hematuria secondary to pulling on his Garcia catheter. PLAN: Continue Garcia catheter at this time. We will wean the CBI to clear. Once his urine is clear and he is medically stable, then the Garcia catheter can be removed and a formal void trial could be done. He can then follow up with his urologist, Dr. Hernandez, as an outpatient. Thank you for this consult. MD TEETEE Doyle/dread , 06:30 PM , 06:39 PM
[2018-04-26] MEDS: Metoprolol Tartrate 50 MG Tablet PO SCH ×3 (05:45→22:42)
[2018-04-26] MEDS: Multivitamin/Minerals Therapeutic Tablet PO SCH (08:35)
[2018-04-26] MEDS: Allopurinol 300 MG Tablet PO SCH (08:35)
[2018-04-26] MEDS: Folic Acid 1 MG Tablet PO SCH (08:35)
[2018-04-26] MEDS: Enoxaparin Inj 100 MG/ML Syringe SQ SCH ×2 (08:36→20:58)
--- NOTE | 2018-04-26 10:41 | P.PNIM ---
Subjective Interval history: Patient seen and evaluated today in follow-up for atrial fibrillation withdrawal. Much more coherent today. No new events. Family at bedside and plan of care discussed with patient. Patient's heart rate still quite above 110 on 5 of ze. Discussed with ICU team Physical Exam Vital signs: Vital Signs 04/25/18 12:00 04/25/18 13:00 04/25/18 13:30 Temperature 97.7 F Pulse Rate 106 H 104 H Respiratory Rate 20 27 H 25 H Blood Pressure 105/83 125/75 Pulse Oximetry 96 96 04/25/18 14:00 04/25/18 14:30 04/25/18 15:00 Temperature Pulse Rate 100 H 102 H 100 H Respiratory Rate 22 24 24 Blood Pressure 121/70 122/70 116/72 Pulse Oximetry 97 97 97 04/25/18 15:30 04/25/18 16:00 04/25/18 16:30 Temperature Pulse Rate 104 H 104 H 104 H Respiratory Rate 32 H 22 24 Blood Pressure 114/76 114/72 103/70 Pulse Oximetry 98 98 96 04/25/18 17:00 04/25/18 17:30 04/25/18 18:00 Temperature 98.1 F Pulse Rate 102 H 106 H 106 H Respiratory Rate 22 24 36 H Blood Pressure 97/73 L 114/67 112/71 Pulse Oximetry 99 97 98 04/25/18 18:36 04/25/18 19:00 04/25/18 20:00 Temperature 98.4 F Pulse Rate 98 H 96 H 96 H Respiratory Rate 30 H 25 H 18 Blood Pressure 101/55 L 114/61 110/76 Pulse Oximetry 95 100 100 04/25/18 20:05 04/25/18 21:00 04/25/18 22:00 Temperature Pulse Rate 98 H 101 H Respiratory Rate 20 22 Blood Pressure 99/64 L 105/75 Pulse Oximetry 97 98 97 04/25/18 22:16 04/26/18 00:00 04/26/18 01:00 Temperature 98.2 F Pulse Rate 99 H 115 H Respiratory Rate 25 H 26 H 25 H Blood Pressure 109/76 130/81 100/70 Pulse Oximetry 97 95 94 L 04/26/18 02:00 04/26/18 03:00 04/26/18 04:00 Temperature 98.2 F Pulse Rate 95 H Respiratory Rate 18 19 23 Blood Pressure 96/55 L 116/76 116/78 Pulse Oximetry 96 97 04/26/18 05:00 04/26/18 06:00 Temperature Pulse Rate 102 H 104 H Respiratory Rate 21 23 Blood Pressure 97/65 L 102/62 Pulse Oximetry 96 96 Intake & Output 04/25/18 04/26/18 04/26/18 18:59 06:59 18:59 Intake Total 845 / 845 485 / 485 Output Total 7825 / 7825 450 / 450 Balance -6980 / -6980 35 / 35 Weight 96.2 kg Intake: IV 125 / 125 125 / 125 Cardizem Inj 125 MG In NS Inj 125 / 125 125 / 125 100 ML @ 5 MG/HR 5 mls/hr IV. CONT TITRATE PRN Rx#:[id number] Oral 720 / 720 360 / 360 Output: Urine 1300 / 1300 Urine Amount (Catheter) 6525 / 6525 450 / 450 Indwelling Urethral Catheter 6525 / 6525 450 / 450 Other: Bladder Irrigation Fluid - Amount Instilled Indwelling Urethral Catheter 6,000 1,800 Date of Last Bowel Movement 04/25/18 # Bowel Movements 2 Narrative: GENERAL: Well-nourished, well-developed patient. SKIN: Warm and dry. HEAD: Normocephalic. EYES: No scleral icterus. No injection or drainage. NECK: Supple, trachea midline. No JVD or lymphadenopathy. CARDIOVASCULAR: Atrial fibrillation with rapid ventricular response but without murmurs, gallops, or rubs. RESPIRATORY: Breath sounds equal bilaterally. No accessory muscle use. GASTROINTESTINAL: Abdomen soft, non-tender, nondistended. MUSCULOSKELETAL: No cyanosis, or edema. BACK: Nontender without obvious deformity. No CVA tenderness. NEUROLOGICAL: Awake and alert. Cranial nerves II through XII intact. Motor and sensory grossly within normal limits. Five out of 5 muscle strength in all muscle groups. Normal speech. - Urinary Catheter Management Indwelling Urethral Catheter Cath placed during this visit: yes Reason for continuing: Gross Hematuria Insertion date: 04/25/18 Insertion time: 01:12 Results - Labs CBC & Chem 7: 04/24/18 04:58 04/24/18 04:58 Assessment and Plan - Assessment (1) Atrial fibrillation with RVR Code(s): I48.91 - Unspecified atrial fibrillation Status: Acute Plan: Seen with new onset atrial fibrillation which appears to be improved on the diltiazem gtt will add oraldiltiazem, cont metoprolol dt's improved Echo unremarkable but poor quality Continue Lovenox Wean diltiazem (2) Alcohol intoxication Code(s): F10.929 - Alcohol use, unspecified with intoxication, unspecified Status: Acute Plan: improved on Ativan and Librium (3) Hematuria Code(s): R31.9 - Hematuria, unspecified Status: Acute Plan: Patient did pull out his urinary catheter while encephalopathic Bladder irrigation has cleared Urology consult appreciated - Plan Discharge Planning: dc home on po meds in am if stable (2) Alcohol intoxication Qualifiers: Complication of substance-induced condition: with unspecified complication Qualified Code(s): F10.929 - Alcohol use, unspecified with intoxication, unspecified
[2018-04-26] MEDS ORDERED: dilTIAZem CD 120 MG Capsule PO ONE (11:00)
--- NOTE | 2018-04-26 14:46 | P.PNCA ---
Subjective Interval history: Follow up for Dr. Singleton No complaints Not anxious Apparently started going through DTs, appears calm now but requiring Ativan Mildly diaphoretic Heart rates still elevated Physical Exam Vital signs: Vital Signs 04/25/18 15:00 04/25/18 15:30 04/25/18 16:00 Temperature Pulse Rate 100 H 104 H 104 H Respiratory Rate 24 32 H 22 Blood Pressure 116/72 114/76 114/72 Pulse Oximetry 97 98 98 04/25/18 16:30 04/25/18 17:00 04/25/18 17:30 Temperature 98.1 F Pulse Rate 104 H 102 H 106 H Respiratory Rate 24 22 24 Blood Pressure 103/70 97/73 L 114/67 Pulse Oximetry 96 99 97 04/25/18 18:00 04/25/18 18:36 04/25/18 19:00 Temperature 98.4 F Pulse Rate 106 H 98 H 96 H Respiratory Rate 36 H 30 H 25 H Blood Pressure 112/71 101/55 L 114/61 Pulse Oximetry 98 95 100 04/25/18 20:00 04/25/18 20:05 04/25/18 21:00 Temperature Pulse Rate 96 H 98 H Respiratory Rate 18 20 Blood Pressure 110/76 99/64 L Pulse Oximetry 100 97 98 04/25/18 22:00 04/25/18 22:16 04/26/18 00:00 Temperature 98.2 F Pulse Rate 101 H 99 H 115 H Respiratory Rate 22 25 H 26 H Blood Pressure 105/75 109/76 130/81 Pulse Oximetry 97 97 95 04/26/18 01:00 04/26/18 02:00 04/26/18 03:00 Temperature Pulse Rate Respiratory Rate 25 H 18 19 Blood Pressure 100/70 96/55 L 116/76 Pulse Oximetry 94 L 96 97 04/26/18 04:00 04/26/18 05:00 04/26/18 06:00 Temperature 98.2 F Pulse Rate 95 H 102 H 104 H Respiratory Rate 23 21 23 Blood Pressure 116/78 97/65 L 102/62 Pulse Oximetry 96 96 04/26/18 07:00 04/26/18 08:00 04/26/18 08:15 Temperature 97.9 F Pulse Rate 104 H 104 H Respiratory Rate 25 H 24 Blood Pressure 114/77 119/76 Pulse Oximetry 93 L 95 98 04/26/18 09:00 04/26/18 10:00 04/26/18 10:15 Temperature Pulse Rate 120 H 114 H Respiratory Rate 36 H 25 H Blood Pressure 108/70 100/76 Pulse Oximetry 94 L 93 L 94 L 04/26/18 11:00 04/26/18 12:33 04/26/18 13:00 Temperature 98.6 F Pulse Rate 116 H 132 H 130 H Respiratory Rate 23 27 H 19 Blood Pressure 103/73 96/81 L 107/75 Pulse Oximetry 93 L 94 L 95 04/26/18 14:00 Temperature Pulse Rate 128 H Respiratory Rate 26 H Blood Pressure 103/87 Pulse Oximetry 94 L Intake & Output 04/25/18 04/26/18 04/26/18 18:59 06:59 18:59 Intake Total 845 / 845 485 / 485 Output Total 7825 / 7825 450 / 450 Balance -6980 / -6980 35 / 35 Weight 96.2 kg Intake: IV 125 / 125 125 / 125 Cardizem Inj 125 MG In NS Inj 125 / 125 125 / 125 100 ML @ 5 MG/HR 5 mls/hr IV. CONT TITRATE PRN Rx#:[id number] Oral 720 / 720 360 / 360 Output: Urine 1300 / 1300 Urine Amount (Catheter) 6525 / 6525 450 / 450 Indwelling Urethral Catheter 6525 / 6525 450 / 450 Other: Bladder Irrigation Fluid - Amount Instilled Indwelling Urethral Catheter 6,000 1,800 Date of Last Bowel Movement 04/25/18 04/26/18 # Bowel Movements 2 Narrative: GENERAL: Well-nourished, well-developed patient. SKIN: Warm and dry. HEAD: Normocephalic. EYES: No scleral icterus. No injection or drainage. NECK: Supple, trachea midline. No JVD or lymphadenopathy. CARDIOVASCULAR: Irregularly irregular but without murmurs, gallops, or rubs. RESPIRATORY: Breath sounds equal bilaterally. No accessory muscle use. GASTROINTESTINAL: Abdomen soft, non-tender, nondistended. MUSCULOSKELETAL: No cyanosis, or edema. BACK: Nontender without obvious deformity. No CVA tenderness. NEUROLOGICAL: Awake and alert. Cranial nerves II through XII intact. Motor and sensory grossly within normal limits. Five out of 5 muscle strength in all muscle groups. Normal speech. - Urinary Catheter Management Indwelling Urethral Catheter Cath placed during this visit: yes Reason for continuing: Gross Hematuria Insertion date: 04/25/18 Insertion time: 01:12 Assessment and Plan - Assessment (1) Delirium tremens Code(s): F10.231 - Alcohol dependence with withdrawal delirium Status: Acute (2) Atrial fibrillation with RVR Code(s): I48.91 - Unspecified atrial fibrillation Status: Acute (3) Alcohol intoxication Code(s): F10.929 - Alcohol use, unspecified with intoxication, unspecified Status: Acute - Plan 1) Afib with RVR Most likely secondary to ETOH abuse Con't BB, agree with adding Cardizem Heart rates may be elevated due to DTs, still requiring Ativan CHADSVASc = 2 (age, HTN), discussed NOAC vs Coumadin vs ASA He will think about it 2) ETOH abuse/DTs Per primary team 3) EF 50-55% by echo 4) Discussed with primary team (3) Alcohol intoxication Qualifiers: Complication of substance-induced condition: with unspecified complication Qualified Code(s): F10.929 - Alcohol use, unspecified with intoxication, unspecified
[2018-04-26] MEDS: LORazepam 1 MG Tablet PO PRN (15:55)
[2018-04-26] MEDS: dilTIAZem Inj 125 MG in Sodium Chlor 0.9% Inj 100 ML IV.CONT PRN (19:20)
[2018-04-27] MEDS: Metoprolol Tartrate 50 MG Tablet PO SCH ×3 (06:14→21:05)
[2018-04-27] MEDS ORDERED: Sodium Chlor 0.9% Inj 500 ML IV.SIG ONE (07:30)
--- NOTE | 2018-04-27 07:39 | P.PNIM ---
Subjective Interval history: She is seen in follow-up for atrial fibrillation for alcohol withdrawal. Much more coherent today. Heart rate still a bit elevated. Blood pressure is low. Patient has been diuresed greatly. Physical Exam Vital signs: Vital Signs 04/26/18 08:00 04/26/18 08:15 04/26/18 09:00 Temperature Pulse Rate 104 H 120 H Respiratory Rate 24 36 H Blood Pressure 119/76 108/70 Pulse Oximetry 95 98 94 L 04/26/18 10:00 04/26/18 10:15 04/26/18 11:00 Temperature Pulse Rate 114 H 116 H Respiratory Rate 25 H 23 Blood Pressure 100/76 103/73 Pulse Oximetry 93 L 94 L 93 L 04/26/18 12:33 04/26/18 13:00 04/26/18 14:00 Temperature 98.6 F Pulse Rate 132 H 130 H 128 H Respiratory Rate 27 H 19 26 H Blood Pressure 96/81 L 107/75 103/87 Pulse Oximetry 94 L 95 94 L 04/26/18 15:00 04/26/18 16:00 04/26/18 17:00 Temperature 98.2 F Pulse Rate 124 H 118 H 118 H Respiratory Rate 29 H 33 H 24 Blood Pressure 119/86 102/78 108/64 Pulse Oximetry 93 L 95 94 L 04/26/18 18:00 04/26/18 19:00 04/26/18 19:49 Temperature Pulse Rate 120 H 126 H Respiratory Rate 22 22 Blood Pressure 113/71 90/63 L Pulse Oximetry 94 L 99 91 L 04/26/18 19:59 04/26/18 20:00 04/26/18 21:00 Temperature 98.2 F Pulse Rate 129 H 123 H Respiratory Rate 27 H 15 Blood Pressure 86/77 L 120/87 Pulse Oximetry 95 95 94 L 04/26/18 22:00 04/26/18 23:00 04/27/18 00:00 Temperature 98.7 F Pulse Rate 123 H 123 H 119 H Respiratory Rate 18 15 Blood Pressure 120/87 120/66 85/59 L Pulse Oximetry 94 L 95 93 L 04/27/18 01:00 04/27/18 01:55 04/27/18 02:00 Temperature Pulse Rate 114 H 113 H Respiratory Rate 13 20 Blood Pressure 113/81 117/77 Pulse Oximetry 94 L 98 97 04/27/18 03:00 04/27/18 04:00 04/27/18 05:00 Temperature 98.6 F Pulse Rate 108 H 111 H 123 H Respiratory Rate 12 21 22 Blood Pressure 115/81 93/65 L Pulse Oximetry 94 L 94 L 94 L 04/27/18 06:00 Temperature Pulse Rate 121 H Respiratory Rate 25 H Blood Pressure 107/77 Pulse Oximetry 93 L Intake & Output 04/26/18 04/27/18 04/27/18 18:59 06:59 18:59 Intake Total 1085 / 1085 480 / 480 Output Total 2400 / 2400 4800 / 4800 Balance -1315 / -1315 -4320 / -4320 Intake: IV 125 / 125 Cardizem Inj 125 MG In NS Inj 125 / 125 100 ML @ 5 MG/HR 5 mls/hr IV. CONT TITRATE PRN Rx#:[id number] Oral 960 / 960 480 / 480 Output: Urine 300 / 300 Urine Amount (Catheter) 2099 4800 / 4800 Indwelling Urethral Catheter 2099 4800 / 4800 Other: Bladder Irrigation Fluid - Amount Instilled Indwelling Urethral Catheter 1,600 2,900 Date of Last Bowel Movement 04/26/18 # Bowel Movements 2 Narrative: GENERAL: Well-nourished, well-developed patient. SKIN: Warm and dry. HEAD: Normocephalic. EYES: No scleral icterus. No injection or drainage. NECK: Supple, trachea midline. No JVD or lymphadenopathy. CARDIOVASCULAR: A. fib without murmurs, gallops, or rubs. RESPIRATORY: Breath sounds equal bilaterally. No accessory muscle use. GASTROINTESTINAL: Abdomen soft, non-tender, nondistended. MUSCULOSKELETAL: No cyanosis, or edema. BACK: Nontender without obvious deformity. No CVA tenderness. NEUROLOGICAL: Awake and alert. Cranial nerves II through XII intact. Motor and sensory grossly within normal limits. Five out of 5 muscle strength in all muscle groups. Normal speech. - Urinary Catheter Management Indwelling Urethral Catheter Cath placed during this visit: yes Reason for continuing: Gross Hematuria Insertion date: 04/25/18 Insertion time: 01:12 Results - Labs CBC & Chem 7: 04/24/18 04:58 04/24/18 04:58 Assessment and Plan - Assessment (1) Atrial fibrillation with RVR Code(s): I48.91 - Unspecified atrial fibrillation Status: Acute Plan: Seen with new onset atrial fibrillation which appears to be improved on the diltiazem gtt will add oraldiltiazem, cont metoprolol dt's resolved Echo unremarkable but poor quality Continue Eliquis Wean diltiazem (2) Alcohol intoxication Code(s): F10.929 - Alcohol use, unspecified with intoxication, unspecified Status: Acute Plan: improved on Ativan as per CIWA protocol (3) Hematuria Code(s): R31.9 - Hematuria, unspecified Status: Acute Plan: Patient did pull out his urinary catheter while encephalopathic Bladder irrigation has cleared Urology consult appreciated - Plan Discharge Planning: dc home on po meds in am if stable (2) Alcohol intoxication Qualifiers: Complication of substance-induced condition: with unspecified complication Qualified Code(s): F10.929 - Alcohol use, unspecified with intoxication, unspecified
[2018-04-27] MEDS: Folic Acid 1 MG Tablet PO SCH (08:01)
[2018-04-27] MEDS: Allopurinol 300 MG Tablet PO SCH (08:01)
[2018-04-27] MEDS: Multivitamin/Minerals Therapeutic Tablet PO SCH (08:01)
[2018-04-27] MEDS ORDERED: dilTIAZem CD 120 MG Capsule PO SCH (09:00)
[2018-04-27] MEDS: Docusate Sodium 100 MG Capsule PO SCH ×2 (14:08→20:16)
--- NOTE | 2018-04-27 16:17 | P.PNCA ---
Subjective Interval history: Feeling better No longer on Ativan/Librium Heart rates 110-130 Physical Exam Vital signs: Vital Signs 04/26/18 17:00 04/26/18 18:00 04/26/18 19:00 Temperature Pulse Rate 118 H 120 H 126 H Respiratory Rate 24 22 22 Blood Pressure 108/64 113/71 90/63 L Pulse Oximetry 94 L 94 L 99 04/26/18 19:49 04/26/18 19:59 04/26/18 20:00 Temperature 98.2 F Pulse Rate 129 H Respiratory Rate 27 H Blood Pressure 86/77 L Pulse Oximetry 91 L 95 95 04/26/18 21:00 04/26/18 22:00 04/26/18 23:00 Temperature Pulse Rate 123 H 123 H 123 H Respiratory Rate 15 18 Blood Pressure 120/87 120/87 120/66 Pulse Oximetry 94 L 94 L 95 04/27/18 00:00 04/27/18 00:03 04/27/18 00:30 Temperature 98.7 F Pulse Rate 119 H 118 H 116 H Respiratory Rate 15 24 20 Blood Pressure 85/59 L 85/54 L 104/74 Pulse Oximetry 93 L 92 L 93 L 04/27/18 01:00 04/27/18 01:23 04/27/18 01:30 Temperature Pulse Rate 112 H 112 H 110 H Respiratory Rate 26 H 28 H 24 Blood Pressure 102/78 113/81 111/76 Pulse Oximetry 87 L 77 L 90 L 04/27/18 01:55 04/27/18 02:00 04/27/18 02:01 Temperature Pulse Rate 108 H 108 H Respiratory Rate 29 H 21 Blood Pressure 79/42 L 77/54 L Pulse Oximetry 98 98 99 04/27/18 02:08 04/27/18 02:12 04/27/18 02:14 Temperature Pulse Rate 108 H 106 H 104 H Respiratory Rate 23 29 H 31 H Blood Pressure 79/46 L 66/57 L 117/77 Pulse Oximetry 98 96 93 L 04/27/18 02:30 04/27/18 03:00 04/27/18 03:30 Temperature Pulse Rate 106 H 106 H 108 H Respiratory Rate 20 18 12 Blood Pressure 124/79 131/80 115/81 Pulse Oximetry 97 97 94 L 04/27/18 04:00 04/27/18 04:30 04/27/18 05:00 Temperature 98.6 F Pulse Rate 110 H 126 H 114 H Respiratory Rate 22 39 H 23 Blood Pressure 93/65 L 104/83 Pulse Oximetry 94 L 94 L 04/27/18 05:30 04/27/18 06:00 04/27/18 06:17 Temperature Pulse Rate 120 H 114 H 124 H Respiratory Rate 20 23 27 H Blood Pressure 114/76 107/77 107/75 Pulse Oximetry 93 L 04/27/18 06:31 04/27/18 07:00 04/27/18 07:30 Temperature 97.9 F Pulse Rate 122 H 106 H 108 H Respiratory Rate 21 20 21 Blood Pressure 84/71 L 99/79 L 111/78 Pulse Oximetry 04/27/18 08:00 04/27/18 08:30 04/27/18 09:00 Temperature Pulse Rate 106 H 116 H 114 H Respiratory Rate 21 17 22 Blood Pressure 109/77 108/71 127/90 Pulse Oximetry 98 04/27/18 10:00 04/27/18 10:30 04/27/18 11:00 Temperature 97.8 F Pulse Rate 120 H 136 H 118 H Respiratory Rate 20 25 H 26 H Blood Pressure 100/70 118/75 112/65 Pulse Oximetry 04/27/18 11:30 04/27/18 12:00 04/27/18 12:30 Temperature 97.9 F Pulse Rate 122 H 120 H 124 H Respiratory Rate 30 H 19 26 H Blood Pressure 134/75 99/70 L 108/63 Pulse Oximetry 04/27/18 13:00 04/27/18 13:04 04/27/18 13:30 Temperature Pulse Rate 124 H 124 H 122 H Respiratory Rate 27 H 21 25 H Blood Pressure 75/62 L 97/67 L 106/66 Pulse Oximetry 04/27/18 14:00 04/27/18 14:14 04/27/18 14:30 Temperature Pulse Rate 120 H 128 H 124 H Respiratory Rate 24 25 H 25 H Blood Pressure 148/98 H 119/71 Pulse Oximetry 04/27/18 15:00 Temperature Pulse Rate 116 H Respiratory Rate 27 H Blood Pressure 131/89 Pulse Oximetry Intake & Output 04/26/18 04/27/18 04/27/18 18:59 06:59 18:59 Intake Total 1085 / 1085 480 / 480 Output Total 2400 / 2400 4800 / 4800 Balance -1315 / -1315 -4320 / -4320 Intake: IV 125 / 125 Cardizem Inj 125 MG In NS Inj 125 / 125 100 ML @ 5 MG/HR 5 mls/hr IV. CONT TITRATE PRN Rx#:[id number] Oral 960 / 960 480 / 480 Output: Urine 300 / 300 Urine Amount (Catheter) 2099 4800 / 4800 Indwelling Urethral Catheter 2099 4800 / 4800 Other: Bladder Irrigation Fluid - Amount Instilled Indwelling Urethral Catheter 1,600 2,900 Date of Last Bowel Movement 04/26/18 04/27/18 # Bowel Movements 2 Narrative: GENERAL: Well-nourished, well-developed patient. SKIN: Warm and dry. HEAD: Normocephalic. EYES: No scleral icterus. No injection or drainage. NECK: Supple, trachea midline. No JVD or lymphadenopathy. CARDIOVASCULAR: Irregularly irregular, tachycardic, without murmurs, gallops, or rubs. RESPIRATORY: Breath sounds equal bilaterally. No accessory muscle use. GASTROINTESTINAL: Abdomen soft, non-tender, nondistended. MUSCULOSKELETAL: No cyanosis, or edema. BACK: Nontender without obvious deformity. No CVA tenderness. NEUROLOGICAL: Awake and alert. Cranial nerves II through XII intact. Motor and sensory grossly within normal limits. Five out of 5 muscle strength in all muscle groups. Normal speech. - Urinary Catheter Management Indwelling Urethral Catheter Cath placed during this visit: yes Reason for continuing: Gross Hematuria Insertion date: 04/25/18 Insertion time: 01:12 Assessment and Plan - Assessment (1) Delirium tremens Code(s): F10.231 - Alcohol dependence with withdrawal delirium Status: Acute (2) Atrial fibrillation with RVR Code(s): I48.91 - Unspecified atrial fibrillation Status: Acute (3) Alcohol intoxication Code(s): F10.929 - Alcohol use, unspecified with intoxication, unspecified Status: Acute - Plan 1) Afib with RVR Most likely secondary to ETOH abuse Con't Cardizem Started on Cardizem CD, will add short acting today and increase Cardizem CD for tomorrow morning CHADSVASc = 2 (age, HTN), discussed NOAC vs Coumadin vs ASA Eliquis BID started If difficulty with heart rates continue, may need FRANKI with CV 2) ETOH abuse/DTs Per primary team Discussed effects of ETOH on cardio Drinks about 1/5 of Vodka daily Will attempt to stop 3) EF 50-55% by echo 4) Discussed with primary team (3) Alcohol intoxication Qualifiers: Complication of substance-induced condition: with unspecified complication Qualified Code(s): F10.929 - Alcohol use, unspecified with intoxication, unspecified
[2018-04-27] MEDS: dilTIAZem 30 MG Tablet PO SCH (17:48)
[2018-04-27] MEDS: dilTIAZem Inj 125 MG in Sodium Chlor 0.9% Inj 100 ML IV.CONT PRN (17:48)
[2018-04-28] MEDS: dilTIAZem 30 MG Tablet PO SCH (00:41)
[2018-04-28] MEDS: Metoprolol Tartrate 50 MG Tablet PO SCH ×3 (05:16→21:02)
[2018-04-28] MEDS: dilTIAZem CD 180 MG Capsule PO SCH (08:50)
[2018-04-28] MEDS: Multivitamin/Minerals Therapeutic Tablet PO SCH (08:50)
[2018-04-28] MEDS: Docusate Sodium 100 MG Capsule PO SCH ×2 (08:51→20:15)
[2018-04-28] MEDS: Folic Acid 1 MG Tablet PO SCH (08:51)
[2018-04-28] MEDS: Allopurinol 300 MG Tablet PO SCH (08:51)
--- NOTE | 2018-04-28 09:57 | P.PNIM ---
Subjective Interval history: Patient seen and evaluated in follow-up for age for ablation. Still quite tachycardic with rapid ventricular atrial fibrillation. Cardioversion may be our next option as patient has high doses of Cardizem and metoprolol with marginal blood pressure. No further hematuria or clots. Care plan discussed with RECREATION TECHNICIAN Physical Exam Vital signs: Vital Signs 04/27/18 10:00 04/27/18 10:30 04/27/18 11:00 Temperature 97.8 F Pulse Rate 120 H 136 H 118 H Respiratory Rate 20 25 H 26 H Blood Pressure 100/70 118/75 112/65 Pulse Oximetry 04/27/18 11:30 04/27/18 12:00 04/27/18 12:30 Temperature 97.9 F Pulse Rate 122 H 120 H 124 H Respiratory Rate 30 H 19 26 H Blood Pressure 134/75 99/70 L 108/63 Pulse Oximetry 04/27/18 13:00 04/27/18 13:04 04/27/18 13:30 Temperature Pulse Rate 124 H 124 H 122 H Respiratory Rate 27 H 21 25 H Blood Pressure 75/62 L 97/67 L 106/66 Pulse Oximetry 04/27/18 14:00 04/27/18 14:14 04/27/18 14:30 Temperature Pulse Rate 120 H 128 H 124 H Respiratory Rate 24 25 H 25 H Blood Pressure 148/98 H 119/71 Pulse Oximetry 04/27/18 15:00 04/27/18 15:30 04/27/18 16:00 Temperature 99.8 F H Pulse Rate 116 H 116 H 120 H Respiratory Rate 27 H 24 22 Blood Pressure 131/89 106/81 100/79 Pulse Oximetry 04/27/18 16:30 04/27/18 17:00 04/27/18 17:49 Temperature Pulse Rate 110 H 136 H 120 H Respiratory Rate 21 27 H 24 Blood Pressure 122/72 126/66 Pulse Oximetry 04/27/18 18:00 04/27/18 19:00 04/27/18 20:00 Temperature 99.7 F H Pulse Rate 120 H 126 H Respiratory Rate 22 25 H 30 H Blood Pressure 129/64 105/62 Pulse Oximetry 94 L 95 04/27/18 20:15 04/27/18 21:00 04/27/18 22:00 Temperature Pulse Rate 114 H Respiratory Rate 12 12 Blood Pressure 78/54 L Pulse Oximetry 94 L 91 L 97 04/27/18 23:00 04/28/18 00:00 04/28/18 01:00 Temperature 97.7 F Pulse Rate 121 H 125 H 129 H Respiratory Rate 15 19 22 Blood Pressure 103/61 117/76 Pulse Oximetry 97 97 04/28/18 02:00 04/28/18 02:49 04/28/18 04:00 Temperature 97.8 F Pulse Rate 133 H 117 H 99 H Respiratory Rate 22 19 Blood Pressure 117/68 124/66 Pulse Oximetry 97 95 04/28/18 04:30 04/28/18 06:00 Temperature Pulse Rate 129 H 104 H Respiratory Rate 15 Blood Pressure 101/79 Pulse Oximetry 95 94 L Intake & Output 04/27/18 04/28/18 04/28/18 18:59 06:59 18:59 Intake Total 465 / 465 360 / 360 Output Total 425 / 425 750 / 750 Balance 40 / 40 -390 / -390 Weight 97.5 kg Intake: IV 125 / 125 Cardizem Inj 125 MG In NS Inj 125 / 125 100 ML @ 5 MG/HR 5 mls/hr IV. CONT TITRATE PRN Rx#:[id number] Oral 360 / 360 Oral Supplement 340 / 340 Output: Urine 425 / 425 Urine Amount (Catheter) 750 / 750 Indwelling Urethral Catheter 750 / 750 Other: Bladder Irrigation Fluid - Amount Instilled Indwelling Urethral Catheter 2,000 1,450 Bladder Irrigation Fluid - Amount Drained Indwelling Urethral Catheter 2,700 Date of Last Bowel Movement 04/27/18 Narrative: GENERAL: Well-nourished, well-developed patient. SKIN: Warm and dry. HEAD: Normocephalic. EYES: No scleral icterus. No injection or drainage. NECK: Supple, trachea midline. No JVD or lymphadenopathy. CARDIOVASCULAR: Irregularly irregular, tachycardic, without murmurs, gallops, or rubs. RESPIRATORY: Breath sounds equal bilaterally. No accessory muscle use. GASTROINTESTINAL: Abdomen soft, non-tender, nondistended. MUSCULOSKELETAL: No cyanosis, or edema. BACK: Nontender without obvious deformity. No CVA tenderness. NEUROLOGICAL: Awake and alert. Cranial nerves II through XII intact. Motor and sensory grossly within normal limits. Five out of 5 muscle strength in all muscle groups. Normal speech. - Urinary Catheter Management Indwelling Urethral Catheter Cath placed during this visit: yes Reason for continuing: Gross Hematuria Insertion date: 04/25/18 Insertion time: 01:12 Results - Labs CBC & Chem 7: 04/24/18 04:58 04/24/18 04:58 Assessment and Plan - Assessment (1) Atrial fibrillation with RVR Code(s): I48.91 - Unspecified atrial fibrillation Status: Acute Plan: Seen with new onset atrial fibrillation which appears to be have plateaued on diltiazem and metoprolol p.o. with diltiazem drip dt's resolved Echo unremarkable but poor quality Continue Eliquis Unable to wean diltiazem gtt May need cardioversion Cardiology consult appreciated (2) Alcohol intoxication Code(s): F10.929 - Alcohol use, unspecified with intoxication, unspecified Status: Acute Plan: Resolved (3) Hematuria Code(s): R31.9 - Hematuria, unspecified Status: Acute Plan: Patient did pull out his urinary catheter while encephalopathic Bladder irrigation has cleared Urology consult appreciated We will attempt to remove Garcia - Plan Discharge Planning: Evaluate for cardioversion (2) Alcohol intoxication Qualifiers: Complication of substance-induced condition: with unspecified complication Qualified Code(s): F10.929 - Alcohol use, unspecified with intoxication, unspecified
[2018-04-28] MEDS ORDERED: Digoxin Inj 500 MCG/2 ML Ampul IV.PUSH ONE ×4 (11:02→23:30)
--- NOTE | 2018-04-28 11:14 | P.PN ---
Subjective Interval history: Still high heart rates, bp marginal Physical Exam Vital signs: Vital Signs 04/27/18 11:30 04/27/18 12:00 04/27/18 12:30 Temperature 97.9 F Pulse Rate 122 H 120 H 124 H Respiratory Rate 30 H 19 26 H Blood Pressure 134/75 99/70 L 108/63 Pulse Oximetry 04/27/18 13:00 04/27/18 13:04 04/27/18 13:30 Temperature Pulse Rate 124 H 124 H 122 H Respiratory Rate 27 H 21 25 H Blood Pressure 75/62 L 97/67 L 106/66 Pulse Oximetry 04/27/18 14:00 04/27/18 14:14 04/27/18 14:30 Temperature Pulse Rate 120 H 128 H 124 H Respiratory Rate 24 25 H 25 H Blood Pressure 148/98 H 119/71 Pulse Oximetry 04/27/18 15:00 04/27/18 15:30 04/27/18 16:00 Temperature 99.8 F H Pulse Rate 116 H 116 H 120 H Respiratory Rate 27 H 24 22 Blood Pressure 131/89 106/81 100/79 Pulse Oximetry 04/27/18 16:30 04/27/18 17:00 04/27/18 17:49 Temperature Pulse Rate 110 H 136 H 120 H Respiratory Rate 21 27 H 24 Blood Pressure 122/72 126/66 Pulse Oximetry 04/27/18 18:00 04/27/18 19:00 04/27/18 20:00 Temperature 99.7 F H Pulse Rate 120 H 126 H Respiratory Rate 22 25 H 30 H Blood Pressure 129/64 105/62 Pulse Oximetry 94 L 95 04/27/18 20:15 04/27/18 21:00 04/27/18 22:00 Temperature Pulse Rate 114 H Respiratory Rate 12 12 Blood Pressure 78/54 L Pulse Oximetry 94 L 91 L 97 04/27/18 23:00 04/28/18 00:00 04/28/18 01:00 Temperature 97.7 F Pulse Rate 121 H 125 H 129 H Respiratory Rate 15 19 22 Blood Pressure 103/61 117/76 Pulse Oximetry 97 97 04/28/18 02:00 04/28/18 02:49 04/28/18 04:00 Temperature 97.8 F Pulse Rate 133 H 117 H 99 H Respiratory Rate 22 19 Blood Pressure 117/68 124/66 Pulse Oximetry 97 95 04/28/18 04:30 04/28/18 06:00 Temperature Pulse Rate 129 H 104 H Respiratory Rate 15 Blood Pressure 101/79 Pulse Oximetry 95 94 L Intake & Output 04/27/18 04/28/18 04/28/18 18:59 06:59 18:59 Intake Total 465 / 465 360 / 360 Output Total 425 / 425 750 / 750 Balance 40 / 40 -390 / -390 Weight 97.5 kg Intake: IV 125 / 125 Cardizem Inj 125 MG In NS Inj 125 / 125 100 ML @ 5 MG/HR 5 mls/hr IV. CONT TITRATE PRN Rx#:[id number] Oral 360 / 360 Oral Supplement 340 / 340 Output: Urine 425 / 425 Urine Amount (Catheter) 750 / 750 Indwelling Urethral Catheter 750 / 750 Other: Bladder Irrigation Fluid - Amount Instilled Indwelling Urethral Catheter 2,000 1,450 Bladder Irrigation Fluid - Amount Drained Indwelling Urethral Catheter 2,700 Date of Last Bowel Movement 04/27/18 04/28/18 - Constitutional no acute distress - Routine HEENT Exam Head: Present: normocephalic - Routine Neck Exam Present: supple. Absent: JVD - Routine Cardiovascular Exam Present: tachycardia, irregular rhythm. Absent: murmur - Routine Abdominal Exam Present: soft - Routine Extremities Exam Absent: edema - Urinary Catheter Management Indwelling Urethral Catheter Cath placed during this visit: yes Reason for continuing: Gross Hematuria Insertion date: 04/25/18 Insertion time: 01:12 Results - Labs CBC & Chem 7: 04/24/18 04:58 04/24/18 04:58 Assessment and Plan - Assessment (1) Delirium tremens Code(s): F10.231 - Alcohol dependence with withdrawal delirium Status: Acute (2) Atrial fibrillation with RVR Code(s): I48.91 - Unspecified atrial fibrillation Status: Acute Plan: added digoxin load; on eliquis (3) Alcohol intoxication Code(s): F10.929 - Alcohol use, unspecified with intoxication, unspecified Status: Acute - Plan afib difficult in the setting of DTs though he seems to be improving (3) Alcohol intoxication Qualifiers: Complication of substance-induced condition: with unspecified complication Qualified Code(s): F10.929 - Alcohol use, unspecified with intoxication, unspecified
[2018-04-28] MEDS ORDERED: Morphine Sulfate Inj 2 MG/ML Vial IV.PUSH ONE (16:00)
[2018-04-28] MEDS ORDERED: Morphine Inj 4 MG/ML Vial IV.PUSH ONE (17:45)
[2018-04-28] MEDS ORDERED: Digoxin Inj 500 MCG/2 ML Ampul IV.PUSH SCH (18:00)
[2018-04-29] MEDS: Metoprolol Tartrate 50 MG Tablet PO SCH ×3 (05:14→21:25)
[2018-04-29 06:22] LABS: Hematocrit 40.4 % (39.0-51.0); Hemoglobin 13.4 gm/dL (13.0-17.0); Mean Corpuscular HGB Conc 33.3 % (32.0-36.0); Mean Corpuscular Hemoglobin 33.9 pg (27.0-34.0); Mean Platelet Volume 7.2 fL (7.0-11.0); Platelet Count 278 th/mm3 (150-450); Red Blood Count 3.96 mil/mm3 (4.50-5.90); Red Cell Distribution Width 13.8 % (11.6-17.2); White Blood Count 7.2 th/mm3 (4.0-11.0)
[2018-04-29 06:29] LABS: Chloride 105 meq/L (98-107); Potassium 3.4 meq/L (3.5-5.1); Sodium 140 meq/L (136-145)
[2018-04-29 06:32] LABS: Calcium 8.2 mg/dL (8.5-10.1)
[2018-04-29 06:33] LABS: Albumin 2.6 g/dL (3.4-5.0); Anion Gap 5 meq/L (5-15); Blood Urea Nitrogen 19 mg/dL (7-18); Carbon Dioxide 30.1 meq/L (21.0-32.0); Glucose,Random 101 mg/dL (74-106)
[2018-04-29 06:36] LABS: Alanine Aminotransferase 25 U/L (12-78); Aspartate Aminotransferase 22 U/L (15-37); Glomerular Filtration Rate Greater Than 89 mL/min (>89)
[2018-04-29 06:38] LABS: Total Protein 6.8 g/dL (6.4-8.2)
[2018-04-29 06:39] LABS: Alkaline Phosphatase 59 U/L (45-117)
[2018-04-29] MEDS: dilTIAZem CD 180 MG Capsule PO SCH (07:54)
--- NOTE | 2018-04-29 07:58 | P.PNCA ---
Subjective Interval history: The patient denies chest pain, shortness of breath, palpitations, GI symptoms or bleeding. Telemetry reveals atrial fibrillation of approximately 100. Laboratories reviewed from today. Physical Exam Vital signs: Vital Signs 04/28/18 08:00 04/28/18 09:00 04/28/18 10:00 Temperature Pulse Rate 132 H 126 H 128 H Respiratory Rate 27 H 30 H 35 H Blood Pressure Pulse Oximetry 97 04/28/18 11:00 04/28/18 12:00 04/28/18 12:30 Temperature 98.2 F Pulse Rate 132 H 138 H 152 H Respiratory Rate 33 H 18 20 Blood Pressure 122/78 98/59 L 98/59 L Pulse Oximetry 04/28/18 13:00 04/28/18 14:00 04/28/18 15:00 Temperature Pulse Rate 130 H 126 H 146 H Respiratory Rate 18 16 46 H Blood Pressure 98/66 L 121/60 109/71 Pulse Oximetry 04/28/18 16:00 04/28/18 17:00 04/28/18 18:00 Temperature 98.6 F Pulse Rate 100 H 112 H 114 H Respiratory Rate 21 13 28 H Blood Pressure 132/94 H 121/87 117/77 Pulse Oximetry 04/28/18 19:00 04/28/18 20:00 04/28/18 20:01 Temperature 98.8 F Pulse Rate 112 H 118 H 118 H Respiratory Rate 20 28 H Blood Pressure 114/74 149/82 H Pulse Oximetry 97 97 04/28/18 21:00 04/28/18 22:00 04/28/18 22:18 Temperature Pulse Rate 106 H 99 H Respiratory Rate 21 20 16 Blood Pressure 120/60 136/80 Pulse Oximetry 04/28/18 23:00 04/29/18 00:00 04/29/18 01:00 Temperature 97.6 F Pulse Rate 94 H 96 H 96 H Respiratory Rate 15 16 19 Blood Pressure 121/78 116/70 121/77 Pulse Oximetry 04/29/18 02:00 04/29/18 03:00 04/29/18 04:00 Temperature 97.8 F Pulse Rate 92 H 110 H 112 H Respiratory Rate 15 21 17 Blood Pressure 97/66 L 156/79 H 109/62 Pulse Oximetry 04/29/18 05:00 04/29/18 06:03 Temperature Pulse Rate 106 H 106 H Respiratory Rate 16 16 Blood Pressure 97/59 L 110/74 Pulse Oximetry Intake & Output 04/28/18 04/29/18 04/29/18 18:59 06:59 18:59 Intake Total 1200 / 1200 1325 / 1325 Output Total 650 / 650 3700 / 3700 Balance 550 / 550 -2375 / -2375 Weight 96.3 kg Intake: IV 125 / 125 Cardizem Inj 125 MG In NS Inj 125 / 125 100 ML @ 5 MG/HR 5 mls/hr IV. CONT TITRATE PRN Rx#:[id number] Oral 1200 / 1200 1200 / 1200 Output: Urine Amount (Catheter) 650 / 650 3700 / 3700 Indwelling Urethral Catheter 650 / 650 3700 / 3700 Other: Bladder Irrigation Fluid - Amount Instilled Indwelling Urethral Catheter 2,800 900 Bladder Irrigation Fluid - Amount Drained Indwelling Urethral Catheter 3,450 Date of Last Bowel Movement 04/28/18 04/28/18 # Bowel Movements 2 - Routine Psychiatric Exam Present: cooperative - Additional findings Additional findings: GENERAL: Well-nourished, well-developed patient in no apparent distress. SKIN: Warm and dry. NECK: JVD normal - less than or equal to 5 cm H20. CARDIOVASCULAR: Regular rate and rhythm without murmurs, gallops, or rubs. RESPIRATORY: Normal breath sounds - equal bilaterally. No accessory muscle use. No wheezes, rales or rubs. PERIPHERY: No cyanosis. Trace edema. - Urinary Catheter Management Indwelling Urethral Catheter Cath placed during this visit: yes, but has since been removed by the nurse Reason for continuing: Other continuation reason Insertion date: 04/28/18 Insertion time: 13:50 Removal date: 04/28/18 Removal time: 11:30 Assessment and Plan - Assessment (1) Delirium tremens Code(s): F10.231 - Alcohol dependence with withdrawal delirium Status: Acute (2) Atrial fibrillation with RVR Code(s): I48.91 - Unspecified atrial fibrillation Status: Acute (3) Alcohol intoxication Code(s): F10.929 - Alcohol use, unspecified with intoxication, unspecified Status: Acute - Plan Problems: Atrial fibrillation with rapid response Alcohol abuse with the patient drinking 1pint to 1 quart of vodka daily. Delirium tremens Hypertension Noncompliance Hematuria with continuous bladder irrigation Recommendations: We will continue digoxin and metoprolol. I will change his sustained release diltiazem to twice daily. His telemetry reveals atrial fibrillation at a rate of approximately 100. Have strongly counseled him against drinking. He is obtaining a sponsor and will be going back to as soon as he leaves the hospital. He understands that we would not want to have him on anticoagulation if he were going to be noncompliant and drink. He understands potentially fatal risks if he does do anticoagulation with the drinking and states he will not drink. Replete potassium We will sign off and be available if needed. All questions answered. (3) Alcohol intoxication Qualifiers: Complication of substance-induced condition: with unspecified complication Qualified Code(s): F10.929 - Alcohol use, unspecified with intoxication, unspecified
[2018-04-29] MEDS: Digoxin 125 MCG Tablet PO SCH (08:16)
[2018-04-29] MEDS: Allopurinol 300 MG Tablet PO SCH (08:16)
[2018-04-29] MEDS ORDERED: Enoxaparin Inj 100 MG/ML Syringe SQ SCH (09:00)
[2018-04-29] MEDS: Docusate Sodium 100 MG Capsule PO SCH ×2 (09:21→22:06)
--- NOTE | 2018-04-29 13:36 | P.PNIM ---
Subjective Interval history: Patient appears to be resting comfortably but his heart rate is 119 bpm. He denies shortness of breath or chest pain. He reports that he has had no blood clots or obvious bleeding into his urinary bag for greater than 24 hours. He is asking about when he might go home, but is understanding about staying of his heart rate is still uncontrolled. Physical Exam Vital signs: Vital Signs 04/28/18 14:00 04/28/18 15:00 04/28/18 16:00 Temperature 98.6 F Pulse Rate 126 H 146 H 100 H Respiratory Rate 16 46 H 21 Blood Pressure 121/60 109/71 132/94 H Pulse Oximetry 04/28/18 17:00 04/28/18 18:00 04/28/18 19:00 Temperature Pulse Rate 112 H 114 H 112 H Respiratory Rate 13 28 H 20 Blood Pressure 121/87 117/77 114/74 Pulse Oximetry 97 04/28/18 20:00 04/28/18 20:01 04/28/18 21:00 Temperature 98.8 F Pulse Rate 118 H 118 H 106 H Respiratory Rate 28 H 21 Blood Pressure 149/82 H 120/60 Pulse Oximetry 97 04/28/18 22:00 04/28/18 22:18 04/28/18 23:00 Temperature Pulse Rate 99 H 94 H Respiratory Rate 20 16 15 Blood Pressure 136/80 121/78 Pulse Oximetry 04/29/18 00:00 04/29/18 01:00 04/29/18 02:00 Temperature 97.6 F Pulse Rate 96 H 96 H 92 H Respiratory Rate 16 19 15 Blood Pressure 116/70 121/77 97/66 L Pulse Oximetry 04/29/18 03:00 04/29/18 04:00 04/29/18 05:00 Temperature 97.8 F Pulse Rate 110 H 112 H 106 H Respiratory Rate 21 17 16 Blood Pressure 156/79 H 109/62 97/59 L Pulse Oximetry 04/29/18 06:03 04/29/18 07:00 04/29/18 08:00 Temperature 98.3 F Pulse Rate 106 H 114 H 120 H Respiratory Rate 16 22 19 Blood Pressure 110/74 137/93 H 109/75 Pulse Oximetry 99 04/29/18 09:00 04/29/18 09:54 04/29/18 10:00 Temperature Pulse Rate 108 H 114 H Respiratory Rate 18 22 Blood Pressure 125/69 Pulse Oximetry 96 04/29/18 10:31 04/29/18 11:00 04/29/18 11:41 Temperature Pulse Rate 118 H 110 H Respiratory Rate 30 H 19 19 Blood Pressure 138/76 115/78 Pulse Oximetry Intake & Output 04/28/18 04/29/18 04/29/18 18:59 06:59 18:59 Intake Total 1200 / 1200 1325 / 1325 Output Total 650 / 650 3700 / 3700 Balance 550 / 550 -2375 / -2375 Weight 96.3 kg Intake: IV 125 / 125 Cardizem Inj 125 MG In NS Inj 125 / 125 100 ML @ 5 MG/HR 5 mls/hr IV. CONT TITRATE PRN Rx#:[id number] Oral 1200 / 1200 1200 / 1200 Output: Urine Amount (Catheter) 650 / 650 3700 / 3700 Indwelling Urethral Catheter 650 / 650 3700 / 3700 Other: Bladder Irrigation Fluid - Amount Instilled Indwelling Urethral Catheter 2,800 900 Bladder Irrigation Fluid - Amount Drained Indwelling Urethral Catheter 3,450 Date of Last Bowel Movement 04/28/18 04/28/18 04/28/18 # Bowel Movements 2 Narrative: GENERAL: AAOx3, no acute distress, obese SKIN: Warm and dry. No rashes HEAD: Atruamtic, normocephalic. EYES: No scleral icterus. No injection or drainage. ENT: Moist mucous membranes, patent nares, no erythema of oropharynx. NECK: Supple, trachea midline. No JVD or lymphadenopathy. Normal thyroid. CARDIOVASCULAR: Irregularly irregular, heart rate 119. No murmurs, gallops, or rubs. RESPIRATORY: Breath sounds clear equal bilaterally. No crackles or wheezes. No accessory muscle use. GASTROINTESTINAL: Abdomen soft, non-tender, nondistended, normal active bowel sounds MUSCULOSKELETAL: No cyanosis, or edema. NEURO: CN II-XII grossly intact, no focal deficits, no slurring of speech - Urinary Catheter Management Indwelling Urethral Catheter Cath placed during this visit: yes, but has since been removed by the nurse Reason for continuing: Other continuation reason Insertion date: 04/28/18 Insertion time: 13:50 Removal date: 04/28/18 Removal time: 11:30 Results - Labs CBC & Chem 7: 04/29/18 06:15 04/29/18 06:15 Laboratory Results - last 24 hr 04/29/18 04/29/18 06:15 06:15 WBC 7.2 RBC 3.96 L Hgb 13.4 Hct 40.4 MCV 102.0 H MCH 33.9 MCHC 33.3 RDW 13.8 Plt Count 278 D MPV 7.2 Sodium 140 Potassium 3.4 L Chloride 105 Carbon Dioxide 30.1 Anion Gap 5 BUN 19 H Creatinine 0.83 Estimated GFR Greater than 89 Random Glucose 101 Calcium 8.2 L Total Bilirubin 0.4 AST 22 ALT 25 Alkaline Phosphatase 59 Total Protein 6.8 Albumin 2.6 L Assessment and Plan - Assessment (1) Atrial fibrillation with RVR Code(s): I48.91 - Unspecified atrial fibrillation Status: Acute Plan: Seen with new onset atrial fibrillation which appears to be have plateaued on diltiazem and metoprolol p.o. with diltiazem drip dt's resolved Echo unremarkable but poor quality Continue Eliquis Unable to wean diltiazem gtt May need cardioversion Cardiology consult appreciated (2) Alcohol intoxication Code(s): F10.929 - Alcohol use, unspecified with intoxication, unspecified Status: Acute Plan: Resolved (3) Hematuria Code(s): R31.9 - Hematuria, unspecified Status: Acute Plan: Patient did pull out his urinary catheter while encephalopathic Bladder irrigation has cleared Urology consult appreciated We will attempt to remove Garcia - Plan Atrial fibrillation with RVR Evaluated by to waiter waitress, patient is suspect for alcohol-induced A. fib Continue with adjusted doses of diltiazem, metoprolol, digoxin Continue Eliquis, discontinue Lovenox Appreciate cardiology consult Hematuria No clots or evidence of gross hematuria in his catheter bag for greater than 24 hours CBI drip held today, will observe urine quality If no further bleeding or clots develop, consider removing catheter Alcoholism Patient had evidence of delirium tremens on admission He no longer has signs of DTs DVT prophylaxis Eliquis (2) Alcohol intoxication Qualifiers: Complication of substance-induced condition: with unspecified complication Qualified Code(s): F10.929 - Alcohol use, unspecified with intoxication, unspecified
[2018-04-29] MEDS: dilTIAZem CD 120 MG Capsule PO SCH (17:28)
[2018-04-29] MEDS ORDERED: Melatonin 5 MG Tablet PO ONE (22:15)
[2018-04-30] MEDS: Metoprolol Tartrate 50 MG Tablet PO SCH ×3 (05:55→21:03)
[2018-04-30] MEDS: dilTIAZem CD 120 MG Capsule PO SCH ×2 (05:55→18:24)
[2018-04-30] MEDS: Docusate Sodium 100 MG Capsule PO SCH ×2 (08:35→21:03)
[2018-04-30] MEDS: Digoxin 125 MCG Tablet PO SCH (08:37)
[2018-04-30] MEDS: Allopurinol 300 MG Tablet PO SCH (08:39)
[2018-04-30] MEDS ORDERED: Digoxin 125 MCG Tablet PO SCH (09:00)
[2018-04-30 09:47] LABS: Hematocrit 38.6 % (39.0-51.0); Mean Corpuscular HGB Conc 33.7 % (32.0-36.0); Mean Corpuscular Hemoglobin 33.8 pg (27.0-34.0); Mean Corpuscular Volume 100.1 fL (80.0-100.0); Mean Platelet Volume 7.2 fL (7.0-11.0); Platelet Count 325 th/mm3 (150-450); Red Blood Count 3.86 mil/mm3 (4.50-5.90); Red Cell Distribution Width 14.6 % (11.6-17.2)
[2018-04-30 09:55] LABS: Calcium 8.5 mg/dL (8.5-10.1)
[2018-04-30 09:56] LABS: Carbon Dioxide 29.1 meq/L (21.0-32.0); Potassium 3.8 meq/L (3.5-5.1)
--- NOTE | 2018-04-30 15:50 | P.PNIM ---
Subjective Interval history: Patient had no bleeding into his catheter overnight. He is ready to have it removed. He remains unimproved with his atrial fibrillation. Roughly 110 bpm at rest and 140 bpm this morning when he ambulated from the toilet 5 feet to his chair. Physical Exam Vital signs: Vital Signs 04/29/18 16:00 04/29/18 17:27 04/29/18 18:00 Temperature Pulse Rate 102 H 136 H 106 H Respiratory Rate 22 26 H 17 Blood Pressure 124/78 123/69 Pulse Oximetry 04/29/18 19:00 04/29/18 19:32 04/29/18 20:00 Temperature 98.7 F Pulse Rate 102 H 104 H Respiratory Rate 25 H 0 L 22 Blood Pressure 96/57 L 120/74 Pulse Oximetry 97 04/29/18 20:02 04/29/18 21:00 04/29/18 22:00 Temperature Pulse Rate 108 H 99 H Respiratory Rate 18 18 Blood Pressure 136/74 134/72 Pulse Oximetry 96 04/29/18 23:00 04/30/18 00:00 04/30/18 01:00 Temperature 97.6 F Pulse Rate 84 92 H 90 Respiratory Rate 16 14 14 Blood Pressure 117/67 123/74 114/49 L Pulse Oximetry 96 04/30/18 02:00 04/30/18 03:00 04/30/18 04:00 Temperature Pulse Rate 96 H 102 H 102 H Respiratory Rate 17 13 16 Blood Pressure 116/67 85/69 L 103/50 L Pulse Oximetry 04/30/18 04:03 04/30/18 05:00 04/30/18 06:00 Temperature 98.6 F Pulse Rate 108 H 110 H 126 H Respiratory Rate 28 H 24 24 Blood Pressure 125/69 140/79 133/85 Pulse Oximetry 04/30/18 07:00 04/30/18 08:00 04/30/18 08:09 Temperature 98.2 F Pulse Rate 96 H 96 H Respiratory Rate 21 16 Blood Pressure 121/75 Pulse Oximetry 96 04/30/18 08:49 04/30/18 09:05 04/30/18 10:00 Temperature Pulse Rate 110 H 100 H 94 H Respiratory Rate 34 H 25 H 23 Blood Pressure 103/73 103/72 96/65 L Pulse Oximetry 04/30/18 11:00 04/30/18 12:00 04/30/18 13:14 Temperature 98.0 F Pulse Rate 92 H 98 H Respiratory Rate 16 34 H 25 H Blood Pressure 107/57 L 108/69 Pulse Oximetry Intake & Output 04/29/18 04/30/18 04/30/18 18:59 06:59 18:59 Intake Total 460 / 460 400 / 400 720 / 720 Output Total 850 / 850 2550 / 2550 201 / 201 Balance -390 / -390 -2150 / -2150 519 / 519 Weight 96.1 kg Intake: Oral 460 / 460 400 / 400 720 / 720 Output: Urine 850 / 850 850 / 850 200 / 200 Stool / Urine Amount (Catheter) 1700 / 1700 Indwelling Urethral Catheter 1700 / 1700 Other: Date of Last Bowel Movement 04/28/18 04/29/18 04/30/18 # Incontinent Bowel Movements 1 Narrative: GENERAL: AAOx3, no acute distress, obese SKIN: Warm and dry. No rashes HEAD: Atruamtic, normocephalic. EYES: No scleral icterus. No injection or drainage. ENT: Moist mucous membranes, patent nares, no erythema of oropharynx. NECK: Supple, trachea midline. No JVD or lymphadenopathy. Normal thyroid. CARDIOVASCULAR: Irregularly irregular, heart rate 119. No murmurs, gallops, or rubs. RESPIRATORY: Breath sounds clear equal bilaterally. No crackles or wheezes. No accessory muscle use. GASTROINTESTINAL: Abdomen soft, non-tender, nondistended, normal active bowel sounds MUSCULOSKELETAL: No cyanosis, or edema. NEURO: CN II-XII grossly intact, no focal deficits, no slurring of speech - Urinary Catheter Management Indwelling Urethral Catheter Cath placed during this visit: yes, but has since been removed by the nurse Reason for continuing: Other continuation reason Insertion date: 04/28/18 Insertion time: 13:50 Removal date: 04/28/18 Removal time: 11:30 Results - Labs CBC & Chem 7: 04/30/18 09:35 04/30/18 09:35 Laboratory Results - last 24 hr 04/30/18 04/30/18 09:35 09:35 WBC 5.0 RBC 3.86 L Hgb 13.0 Hct 38.6 L MCV 100.1 H MCH 33.8 MCHC 33.7 RDW 14.6 Plt Count 325 MPV 7.2 Sodium 143 Potassium 3.8 Chloride 108 H Carbon Dioxide 29.1 Anion Gap 6 BUN 16 Creatinine 0.93 Estimated GFR 82 L Random Glucose 128 H Calcium 8.5 Assessment and Plan - Assessment (1) Atrial fibrillation with RVR Code(s): I48.91 - Unspecified atrial fibrillation Status: Acute Plan: Seen with new onset atrial fibrillation which appears to be have plateaued on diltiazem and metoprolol p.o. with diltiazem drip dt's resolved Echo unremarkable but poor quality Continue Eliquis Unable to wean diltiazem gtt May need cardioversion Cardiology consult appreciated (2) Alcohol intoxication Code(s): F10.929 - Alcohol use, unspecified with intoxication, unspecified Status: Acute Plan: Resolved (3) Hematuria Code(s): R31.9 - Hematuria, unspecified Status: Acute Plan: Patient did pull out his urinary catheter while encephalopathic Bladder irrigation has cleared Urology consult appreciated We will attempt to remove Garcia - Plan Atrial fibrillation with RVR Evaluated by to nut sorter operator, patient is suspect for alcohol-induced A. fib Continue with adjusted doses of diltiazem, metoprolol, digoxin Continue Eliquis Patient is not responding well to current medications Reconsult cardiology to assist with medications or further workup, possible thallium stress test to rule out ischemic causes Hematuria Much reduced overnight, discontinue Garcia Observe for recurrence of hematuria given blood thinners Alcoholism Patient had evidence of delirium tremens on admission Stable, he no longer has signs of DTs DVT prophylaxis Eliquis (2) Alcohol intoxication Qualifiers: Complication of substance-induced condition: with unspecified complication Qualified Code(s): F10.929 - Alcohol use, unspecified with intoxication, unspecified
[2018-04-30] MEDS: Melatonin 5 MG Tablet PO PRN (21:04)
[2018-05-01] MEDS: dilTIAZem CD 120 MG Capsule PO SCH ×2 (06:09→18:26)
[2018-05-01] MEDS: Metoprolol Tartrate 50 MG Tablet PO SCH ×3 (06:09→21:04)
[2018-05-01] MEDS: Docusate Sodium 100 MG Capsule PO SCH ×2 (08:14→21:04)
[2018-05-01] MEDS: Digoxin 125 MCG Tablet PO SCH (08:14)
[2018-05-01] MEDS: Allopurinol 300 MG Tablet PO SCH (08:16)
[2018-05-01] MEDS ORDERED: Chlorhexidine Gluconate 2% 1 Pack (2 Cloths) TOPICAL SCH (09:45)
[2018-05-01] MEDS ORDERED: Metoprolol Tartrate 25 MG Tablet PO SCH (09:45)
[2018-05-01] MEDS ORDERED: Sodium Chlor 0.9% Inj 500 ML IV.SIG SCH (10:00)
[2018-05-01] MEDS ORDERED: Phenylephrine/NS 1000 MCG/10ML Syringe IV.PUSH ONE (12:00)
[2018-05-01] MEDS ORDERED: Lidocaine PF 1% Inj 5 ML Syringe INFILTRATN ONE (12:00)
--- NOTE | 2018-05-01 15:08 | ECHRPT ---
Indication: A-FIB/CARDIOVERSION CONCLUSIONS The left ventricular systolic function is low normal with an estimated ejection fraction in the rang e of 50- 55%. [id number] mitral valve regurgitation. There is trace tricuspid valve regurgitation. Please see separate note for cardioversion BP: / HR: Rhythm: Technical Quality:Good Medications Complications Proc. Components Anesthesia at bedside for sedation FINDINGS LEFT VENTRICLE Normal left ventricular size. The left ventricular systolic function is low normal with an estimated ejection fraction in the rang e of 50- 55%. RIGHT VENTRICLE The right ventricular size is normal. The right ventricular systoilc function is normal. LEFT ATRIUM The left atrial size is normal. RIGHT ATRIUM The right atrial size is normal. ATRIAL APPENDAGES Normal left atrial appendage size with no evidence of thrombus formation. ATRIAL SEPTUM Normal atrial septal thickness without atrial level shunting by limited color doppler interrogation. MITRAL VALVE Structurally normal mitral valve. [id number] mitral valve regurgitation. No mitral valve stenosis. AORTIC VALVE Trileaflet aortic valve. No aortic valve stenosis or regurgitation. TRICUSPID VALVE Structurally normal tricuspid valve. There is trace tricuspid valve regurgitation. No tricuspid valv e stenosis. VESSELS The pulmonary valve is not well visualized. No pulmonary valve regurgitation. Dominguez Fish DO (Electronically Signed) Final Date:01 May 2018 15:07
--- NOTE | 2018-05-01 15:10 | P.PCNCA ---
- Cardiology Procedure Note Procedure: FRANKI with Cardioversion Procedure Date: 05/01/18 Procedure Detail: Please see separate note about FRANKI. No evidence of thrombus noted on FRANKI. Patient has been on Eliquis for anti- coagulation. Pads placed anterior and lateral. Sedation provided by anesthesia. Cardioverted with 200J once back into sinus rhythm. Tolerated the procedure well.
--- NOTE | 2018-05-01 15:13 | P.PNCA ---
Subjective Interval history: s/p FRANKI with CV Doing well Sinus rhythm Physical Exam Vital signs: Vital Signs 04/30/18 16:00 04/30/18 16:03 04/30/18 16:24 Temperature 98.9 F Pulse Rate 102 H 96 H Respiratory Rate 20 26 H 17 Blood Pressure 129/75 114/76 Pulse Oximetry 04/30/18 17:00 04/30/18 18:00 04/30/18 19:00 Temperature Pulse Rate 100 H 122 H 117 H Respiratory Rate 17 36 H 17 Blood Pressure 136/79 Pulse Oximetry 99 04/30/18 19:15 04/30/18 19:18 04/30/18 19:33 Temperature Pulse Rate 112 H Respiratory Rate 22 2 L Blood Pressure 138/72 Pulse Oximetry 04/30/18 19:45 04/30/18 20:00 04/30/18 21:00 Temperature 98.8 F Pulse Rate 110 H 108 H Respiratory Rate 33 H 15 Blood Pressure 138/72 Pulse Oximetry 99 99 04/30/18 22:00 04/30/18 23:00 04/30/18 23:13 Temperature Pulse Rate 98 H 82 100 H Respiratory Rate 15 39 H 27 H Blood Pressure 118/77 Pulse Oximetry 04/30/18 23:54 05/01/18 00:00 05/01/18 01:00 Temperature 98.3 F Pulse Rate 88 80 Respiratory Rate 13 14 11 L Blood Pressure 118/77 Pulse Oximetry 100 05/01/18 02:00 05/01/18 03:00 05/01/18 04:00 Temperature 98.3 F Pulse Rate 92 H 88 92 H Respiratory Rate 18 10 L 11 L Blood Pressure 137/74 Pulse Oximetry 95 05/01/18 04:25 05/01/18 05:00 05/01/18 06:00 Temperature Pulse Rate 104 H 90 100 H Respiratory Rate 17 9 L 17 Blood Pressure 137/74 Pulse Oximetry 05/01/18 07:00 05/01/18 08:00 05/01/18 08:02 Temperature Pulse Rate 82 86 84 Respiratory Rate 18 18 19 Blood Pressure 97/76 L Pulse Oximetry 98 05/01/18 12:00 Temperature 98.5 F Pulse Rate 65 Respiratory Rate 12 Blood Pressure 136/69 Pulse Oximetry 100 Intake & Output 04/30/18 05/01/18 05/01/18 18:59 06:59 18:59 Intake Total 1720 / 1720 360 / 360 Output Total 701 / 701 500 / 500 Balance 1019 / 1019 -140 / -140 Weight 93.9 kg Intake: Oral 1720 / 1720 360 / 360 Output: Urine 700 / 700 500 / 500 Stool Other: # Voids 5 Date of Last Bowel Movement 04/30/18 04/30/18 Narrative: GENERAL: AAOx3, no acute distress, obese SKIN: Warm and dry. No rashes HEAD: Atruamtic, normocephalic. EYES: No scleral icterus. No injection or drainage. ENT: Moist mucous membranes, patent nares, no erythema of oropharynx. NECK: Supple, trachea midline. No JVD or lymphadenopathy. Normal thyroid. CARDIOVASCULAR: RRR. No murmurs, gallops, or rubs. RESPIRATORY: Breath sounds clear equal bilaterally. No crackles or wheezes. No accessory muscle use. GASTROINTESTINAL: Abdomen soft, non-tender, nondistended, normal active bowel sounds MUSCULOSKELETAL: No cyanosis, or edema. NEURO: CN II-XII grossly intact, no focal deficits, no slurring of speech - Urinary Catheter Management Indwelling Urethral Catheter Cath placed during this visit: yes, but has since been removed by the nurse Reason for continuing: Other continuation reason Insertion date: 04/28/18 Insertion time: 13:50 Removal date: 04/28/18 Removal time: 11:30 Assessment and Plan - Assessment (1) Delirium tremens Code(s): F10.231 - Alcohol dependence with withdrawal delirium Status: Acute (2) Atrial fibrillation with RVR Code(s): I48.91 - Unspecified atrial fibrillation Status: Acute (3) Alcohol intoxication Code(s): F10.929 - Alcohol use, unspecified with intoxication, unspecified Status: Acute - Plan 1) Afib with RVR Most likely secondary to ETOH abuse s/p FRANKI with CV Con't Cardizem/Metoprolol Will plan on stopping Digoxin CHADSVASc = 2 (age, HTN), discussed NOAC vs Coumadin vs ASA Eliquis BID 2) ETOH abuse/DTs Per primary team Discussed effects of ETOH on cardio Drinks about 1/5 of Vodka daily Will attempt to stop 3) EF 50-55% by echo 4) If stable overnight, may be discharged home to follow up with me in the office 5) Will be out of town, if concerns please call the office for covering physician (3) Alcohol intoxication Qualifiers: Complication of substance-induced condition: with unspecified complication Qualified Code(s): F10.929 - Alcohol use, unspecified with intoxication, unspecified
--- NOTE | 2018-05-01 16:39 | P.PNIM ---
Subjective Interval history: Patient understands he will be undergoing a cardioversion today to address his persistent atrial fibrillation with RVR tendency. He states that his urine has been a little dark but otherwise no clots no obvious bleeding. Physical Exam Vital signs: Vital Signs 04/30/18 17:00 04/30/18 18:00 04/30/18 19:00 Temperature Pulse Rate 100 H 122 H 117 H Respiratory Rate 17 36 H 17 Blood Pressure 136/79 Pulse Oximetry 99 04/30/18 19:15 04/30/18 19:18 04/30/18 19:33 Temperature Pulse Rate 112 H Respiratory Rate 22 2 L Blood Pressure 138/72 Pulse Oximetry 04/30/18 19:45 04/30/18 20:00 04/30/18 21:00 Temperature 98.8 F Pulse Rate 110 H 108 H Respiratory Rate 33 H 15 Blood Pressure 138/72 Pulse Oximetry 99 99 04/30/18 22:00 04/30/18 23:00 04/30/18 23:13 Temperature Pulse Rate 98 H 82 100 H Respiratory Rate 15 39 H 27 H Blood Pressure 118/77 Pulse Oximetry 04/30/18 23:54 05/01/18 00:00 05/01/18 01:00 Temperature 98.3 F Pulse Rate 88 80 Respiratory Rate 13 14 11 L Blood Pressure 118/77 Pulse Oximetry 100 05/01/18 02:00 05/01/18 03:00 05/01/18 04:00 Temperature 98.3 F Pulse Rate 92 H 88 92 H Respiratory Rate 18 10 L 11 L Blood Pressure 137/74 Pulse Oximetry 95 05/01/18 04:25 05/01/18 05:00 05/01/18 06:00 Temperature Pulse Rate 104 H 90 100 H Respiratory Rate 17 9 L 17 Blood Pressure 137/74 Pulse Oximetry 05/01/18 07:00 05/01/18 08:00 05/01/18 08:02 Temperature Pulse Rate 82 86 84 Respiratory Rate 18 18 19 Blood Pressure 97/76 L Pulse Oximetry 98 05/01/18 12:00 05/01/18 15:47 Temperature 98.5 F Pulse Rate 65 Respiratory Rate 12 18 Blood Pressure 136/69 Pulse Oximetry 100 Intake & Output 04/30/18 05/01/18 05/01/18 18:59 06:59 18:59 Intake Total 1720 / 1720 360 / 360 Output Total 701 / 701 500 / 500 Balance 1019 / 1019 -140 / -140 Weight 93.9 kg Intake: Oral 1720 / 1720 360 / 360 Output: Urine 700 / 700 500 / 500 Stool Other: # Voids 5 Date of Last Bowel Movement 04/30/18 04/30/18 Narrative: GENERAL: AAOx3, no acute distress, obese SKIN: Warm and dry. No rashes HEAD: Atruamtic, normocephalic. EYES: No scleral icterus. No injection or drainage. ENT: Moist mucous membranes, patent nares, no erythema of oropharynx. NECK: Supple, trachea midline. No JVD or lymphadenopathy. Normal thyroid. CARDIOVASCULAR: RRR. No murmurs, gallops, or rubs. RESPIRATORY: Breath sounds clear equal bilaterally. No crackles or wheezes. No accessory muscle use. GASTROINTESTINAL: Abdomen soft, non-tender, nondistended, normal active bowel sounds MUSCULOSKELETAL: No cyanosis, or edema. NEURO: CN II-XII grossly intact, no focal deficits, no slurring of speech - Urinary Catheter Management Indwelling Urethral Catheter Cath placed during this visit: yes, but has since been removed by the nurse Reason for continuing: Other continuation reason Insertion date: 04/28/18 Insertion time: 13:50 Removal date: 04/28/18 Removal time: 11:30 Results - Labs CBC & Chem 7: 04/30/18 09:35 04/30/18 09:35 Assessment and Plan - Assessment (1) Atrial fibrillation with RVR Code(s): I48.91 - Unspecified atrial fibrillation Status: Acute Plan: Seen with new onset atrial fibrillation which appears to be have plateaued on diltiazem and metoprolol p.o. with diltiazem drip dt's resolved Echo unremarkable but poor quality Continue Eliquis Unable to wean diltiazem gtt May need cardioversion Cardiology consult appreciated (2) Alcohol intoxication Code(s): F10.929 - Alcohol use, unspecified with intoxication, unspecified Status: Acute Plan: Resolved (3) Hematuria Code(s): R31.9 - Hematuria, unspecified Status: Acute Plan: Patient did pull out his urinary catheter while encephalopathic Bladder irrigation has cleared Urology consult appreciated We will attempt to remove Garcia - Plan Atrial fibrillation with RVR Persistently in A. fib despite addition of diltiazem, metoprolol, digoxin, with adjustments Continuing Eliquis Patient was cardioverted today and remains in normal sinus rhythm Appreciate cardiology intervention with cardioversion Hematuria Grossly resolved Alcoholism Patient had evidence of delirium tremens on admission Stable, he no longer has signs of DTs DVT prophylaxis Eliquis (2) Alcohol intoxication Qualifiers: Complication of substance-induced condition: with unspecified complication Qualified Code(s): F10.929 - Alcohol use, unspecified with intoxication, unspecified
[2018-05-01] MEDS: Melatonin 5 MG Tablet PO PRN (23:49)
[2018-05-02] MEDS: dilTIAZem CD 120 MG Capsule PO SCH ×3 (05:07→17:08)
[2018-05-02] MEDS: Metoprolol Tartrate 50 MG Tablet PO SCH ×3 (05:07→22:03)
[2018-05-02] MEDS: Allopurinol 300 MG Tablet PO SCH (08:43)
[2018-05-02] MEDS: Docusate Sodium 100 MG Capsule PO SCH ×2 (08:43→20:22)
--- NOTE | 2018-05-02 09:03 | P.PNCA ---
Subjective Interval history: Very frustrated and threatens to leave AMA. No CV complaints Physical Exam Vital signs: Vital Signs 05/01/18 12:00 05/01/18 15:47 05/01/18 16:00 Temperature 98.5 F 97.2 F L Pulse Rate 65 62 Respiratory Rate 12 18 16 Blood Pressure 136/69 120/70 Pulse Oximetry 100 05/01/18 19:00 05/01/18 20:00 05/01/18 20:51 Temperature Pulse Rate 104 H 104 H Respiratory Rate Blood Pressure Pulse Oximetry 98 05/01/18 20:57 05/01/18 21:00 05/01/18 22:00 Temperature 98.9 F Pulse Rate 95 H 96 H 86 Respiratory Rate 18 Blood Pressure 131/88 Pulse Oximetry 98 05/01/18 23:00 05/01/18 23:49 05/02/18 00:00 Temperature 98.7 F Pulse Rate 92 H 86 Respiratory Rate 18 Blood Pressure 121/78 Pulse Oximetry 98 05/02/18 01:00 05/02/18 02:00 05/02/18 03:00 Temperature Pulse Rate 86 80 73 Respiratory Rate 17 Blood Pressure Pulse Oximetry 05/02/18 03:13 05/02/18 04:00 05/02/18 05:00 Temperature 98.2 F Pulse Rate 96 H 89 89 Respiratory Rate 17 Blood Pressure 129/82 Pulse Oximetry 100 05/02/18 06:00 05/02/18 07:00 Temperature 98.1 F Pulse Rate 84 86 Respiratory Rate 18 Blood Pressure 111/72 Pulse Oximetry 97 Intake & Output 05/01/18 05/02/18 05/02/18 18:59 06:59 18:59 Intake Total 960 / 960 480 / 480 Output Total 300 / 300 900 / 900 Balance 660 / 660 -420 / -420 Weight 94.1 kg Intake: IV 0 / 0 LR 1000 mL Inj 1,000 ML @ 30 0 / 0 mls/hr IV.SIG .Q24H [facility] Rx#: [id number] Oral 960 / 960 480 / 480 Output: Urine 300 / 300 900 / 900 Other: Date of Last Bowel Movement 04/30/18 04/30/18 04/30/18 Narrative: Alert, not tremulous Neck no JVD Chest CTA CV: tele recurrent AF RVR 6:30 PM on S1S2 irr irr, rate 100 now 1+ edema - Urinary Catheter Management Indwelling Urethral Catheter Cath placed during this visit: yes, but has since been removed by the nurse Reason for continuing: Other continuation reason Insertion date: 04/28/18 Insertion time: 13:50 Removal date: 04/28/18 Removal time: 11:30 Assessment and Plan - Assessment (1) Delirium tremens Code(s): F10.231 - Alcohol dependence with withdrawal delirium Status: Acute (2) Atrial fibrillation with RVR Code(s): I48.91 - Unspecified atrial fibrillation Status: Acute (3) Alcohol intoxication Code(s): F10.929 - Alcohol use, unspecified with intoxication, unspecified Status: Acute - Plan 05/01/2018 1) Afib with RVR Most likely secondary to ETOH abuse s/p FRANKI with CV Con't Cardizem/Metoprolol Will plan on stopping Digoxin CHADSVASc = 2 (age, HTN), discussed NOAC vs Coumadin vs ASA Eliquis BID 2) ETOH abuse/DTs Per primary team Discussed effects of ETOH on cardio Drinks about 1/5 of Vodka daily Will attempt to stop 3) EF 50-55% by echo 4) If stable overnight, may be discharged home to follow up with me in the office 5) Will be out of town, if concerns please call the office for covering physician 05/02/2018 Back in AF RVR Increase dilt to 240 qd - might need ablation when Nikolas returns after this weekend (3) Alcohol intoxication Qualifiers: Complication of substance-induced condition: with unspecified complication Qualified Code(s): F10.929 - Alcohol use, unspecified with intoxication, unspecified
--- NOTE | 2018-05-02 12:49 | ECG ---
Date Performed: 05/01/2018 Time Performed: 09:11:48 PTAGE: 67 years EKG: Atrial fibrillation with controlled ventricular rate Nonspecific T-wave abnormalities, shahbaz ot exclude ischemia Abnormal ECG Compared to PREVIOUS TRACING , tachycardia has resolved and the T-wave inversions laterally are new. PREVIOUS TRACIN04/23/2018 17.54 DOCTOR: Garland Yi Interpretating Date/Time 05/02/2018 12:48:05
--- NOTE | 2018-05-02 14:16 | P.PNIM ---
Physical Exam Vital signs: Vital Signs 05/01/18 15:47 05/01/18 16:00 05/01/18 19:00 Temperature 97.2 F L Pulse Rate 62 104 H Respiratory Rate 18 16 Blood Pressure 120/70 Pulse Oximetry 05/01/18 20:00 05/01/18 20:51 05/01/18 20:57 Temperature 98.9 F Pulse Rate 104 H 95 H Respiratory Rate 18 Blood Pressure 131/88 Pulse Oximetry 98 98 05/01/18 21:00 05/01/18 22:00 05/01/18 23:00 Temperature Pulse Rate 96 H 86 92 H Respiratory Rate Blood Pressure Pulse Oximetry 05/01/18 23:49 05/02/18 00:00 05/02/18 01:00 Temperature 98.7 F Pulse Rate 86 86 Respiratory Rate 18 17 Blood Pressure 121/78 Pulse Oximetry 98 05/02/18 02:00 05/02/18 03:00 05/02/18 03:13 Temperature 98.2 F Pulse Rate 80 73 96 H Respiratory Rate 17 Blood Pressure 129/82 Pulse Oximetry 100 05/02/18 04:00 05/02/18 05:00 05/02/18 06:00 Temperature Pulse Rate 89 89 84 Respiratory Rate Blood Pressure Pulse Oximetry 05/02/18 07:00 05/02/18 08:00 05/02/18 09:00 Temperature 98.1 F Pulse Rate 76 90 98 H Respiratory Rate 18 Blood Pressure 111/72 Pulse Oximetry 97 05/02/18 10:00 05/02/18 11:00 05/02/18 12:00 Temperature 98.5 F Pulse Rate 106 H 89 112 H Respiratory Rate 20 Blood Pressure 126/74 Pulse Oximetry 98 Intake & Output 05/01/18 05/02/18 05/02/18 18:59 06:59 18:59 Intake Total 960 / 960 480 / 480 Output Total 300 / 300 900 / 900 Balance 660 / 660 -420 / -420 Weight 94.1 kg Intake: IV 0 / 0 LR 1000 mL Inj 1,000 ML @ 30 0 / 0 mls/hr IV.SIG .Q24H [facility] Rx#: [id number] Oral 960 / 960 480 / 480 Output: Urine 300 / 300 900 / 900 Other: Date of Last Bowel Movement 04/30/18 04/30/18 04/30/18 - Urinary Catheter Management Indwelling Urethral Catheter Cath placed during this visit: yes, but has since been removed by the nurse Reason for continuing: Other continuation reason Insertion date: 04/28/18 Insertion time: 13:50 Removal date: 04/28/18 Removal time: 11:30 Results - Labs CBC & Chem 7: 04/30/18 09:35 04/30/18 09:35 Assessment and Plan - Assessment (1) Atrial fibrillation with RVR Code(s): I48.91 - Unspecified atrial fibrillation Status: Acute (2) Alcohol intoxication Code(s): F10.929 - Alcohol use, unspecified with intoxication, unspecified Status: Acute (3) Hematuria Code(s): R31.9 - Hematuria, unspecified Status: Acute - Plan //Atrial fibrillation with RVR Persistently in A. fib despite addition of diltiazem, metoprolol, digoxin, with adjustments Continuing Eliquis Patient was cardioverted today and remains in normal sinus rhythm Appreciate cardiology intervention with cardioversion = 05/02. Patient went back into A. fib RVR after cardioversion. Increase diltiazem as per cardiology. Continue to monitor. Hopefully discharge tomorrow if heart rate stable and controlled. //Hematuria = Secondary to patient pulling out Garcia while inebriated. Appears to be grossly resolved. Will need to follow with primary care as outpatient. //Alcoholism Patient had evidence of delirium tremens on admission Stable, he no longer has signs of DTs //Anxiety. Ativan as needed. //DVT prophylaxis Eliquis Discharge Planning: pEnding cardiology clearance. (2) Alcohol intoxication Qualifiers: Complication of substance-induced condition: with unspecified complication Qualified Code(s): F10.929 - Alcohol use, unspecified with intoxication, unspecified
[2018-05-02] MEDS: Melatonin 5 MG Tablet PO PRN (20:22)
[2018-05-03] MEDS: dilTIAZem CD 120 MG Capsule PO SCH (06:03)
[2018-05-03] MEDS: Metoprolol Tartrate 50 MG Tablet PO SCH ×2 (06:03→13:13)
[2018-05-03] MEDS: Docusate Sodium 100 MG Capsule PO SCH (08:11)
[2018-05-03] MEDS: Allopurinol 300 MG Tablet PO SCH (08:11)
--- NOTE | 2018-05-03 10:25 | P.PNCA ---
Subjective Interval history: No complaints Physical Exam Vital signs: Vital Signs 05/02/18 11:00 05/02/18 12:00 05/02/18 13:00 Temperature 98.5 F Pulse Rate 89 112 H 104 H Respiratory Rate 20 Blood Pressure 126/74 Pulse Oximetry 98 05/02/18 14:00 05/02/18 15:00 05/02/18 16:00 Temperature 98.4 F Pulse Rate 92 H 96 H 82 Respiratory Rate 18 Blood Pressure 130/77 Pulse Oximetry 99 05/02/18 17:00 05/02/18 18:00 05/02/18 19:00 Temperature Pulse Rate 89 83 90 Respiratory Rate Blood Pressure Pulse Oximetry 05/02/18 19:53 05/02/18 20:00 05/02/18 20:02 Temperature 98.6 F Pulse Rate 96 H 96 H Respiratory Rate 17 18 Blood Pressure 108/60 Pulse Oximetry 98 05/02/18 21:00 05/02/18 22:00 05/02/18 23:00 Temperature Pulse Rate 78 90 83 Respiratory Rate Blood Pressure Pulse Oximetry 05/02/18 23:32 05/03/18 00:00 05/03/18 01:00 Temperature 98.4 F Pulse Rate 77 68 72 Respiratory Rate 18 Blood Pressure 99/62 L Pulse Oximetry 96 05/03/18 02:00 05/03/18 03:00 05/03/18 04:00 Temperature 98.4 F Pulse Rate 75 72 75 Respiratory Rate 17 Blood Pressure 104/60 Pulse Oximetry 98 05/03/18 05:00 05/03/18 06:24 05/03/18 07:00 Temperature 97.8 F Pulse Rate 89 76 56 L Respiratory Rate 18 Blood Pressure 117/74 Pulse Oximetry 99 Intake & Output 05/02/18 05/03/18 05/03/18 18:59 06:59 18:59 Intake Total 1560 / 1560 420 / 420 Output Total 650 / 650 450 / 450 Balance 910 / 910 -30 / -30 Weight 94 kg Intake: Oral 1560 / 1560 420 / 420 Output: Urine 650 / 650 450 / 450 Other: Date of Last Bowel Movement 04/30/18 04/30/18 04/30/18 Narrative: Alert, not tremulous Neck no JVD Chest CTA CV: S1S2 irr irr HR controlled on tele tr edema - Urinary Catheter Management Indwelling Urethral Catheter Cath placed during this visit: yes, but has since been removed by the nurse Reason for continuing: Other continuation reason Insertion date: 04/28/18 Insertion time: 13:50 Removal date: 04/28/18 Removal time: 11:30 Assessment and Plan - Assessment (1) Delirium tremens Code(s): F10.231 - Alcohol dependence with withdrawal delirium Status: Acute (2) Atrial fibrillation with RVR Code(s): I48.91 - Unspecified atrial fibrillation Status: Acute (3) Alcohol intoxication Code(s): F10.929 - Alcohol use, unspecified with intoxication, unspecified Status: Acute - Plan 05/01/2018 1) Afib with RVR Most likely secondary to ETOH abuse s/p FRANKI with CV Con't Cardizem/Metoprolol Will plan on stopping Digoxin CHADSVASc = 2 (age, HTN), discussed NOAC vs Coumadin vs ASA Eliquis BID 2) ETOH abuse/DTs Per primary team Discussed effects of ETOH on cardio Drinks about 1/5 of Vodka daily Will attempt to stop 3) EF 50-55% by echo 4) If stable overnight, may be discharged home to follow up with me in the office 5) Will be out of town, if concerns please call the office for covering physician 05/02/2018 Back in AF RVR Increase dilt to 240 qd - might need ablation when Nikolas returns after this weekend 05/03/2018 AF is controlled: 70's and 80's OK to DC home F/U OV Dr. Fish 1-2 weeks (3) Alcohol intoxication Qualifiers: Complication of substance-induced condition: with unspecified complication Qualified Code(s): F10.929 - Alcohol use, unspecified with intoxication, unspecified
--- NOTE | 2018-05-03 12:06 | P.DS ---
Date of admission: 04/23/18 20:19 Primary care physician: Dequan Hernandez MD Brief History from admission: HPI from the admitting physician: This patient is a 67-year-old woman with a history of hypertension who admits increased shortness of breath and edema in the lower extremity for the last 3 days. Was severe enough for him to come to the hospital. He had no previous episodes of this and no cardiac history other than hypertension. He drinks quite a bit of alcohol daily and admits he has been trying to "cut back". Patient denies any chest pain or tightness. He has not had any syncopal episodes and comes to the emergency room for further evaluation. On my review of his x-ray there is quite a bit of vascular congestion. His EKG on my review does show atrial fibrillation with rapid ventricular response. Overnight he has been on Cardizem and appears to have improvement in his cardiac rate but still is quite edematous and shortness of breath with 93% on 2 L nasal cannula. Patient been admitted to the hospital for these reasons. Update on the day of discharge: Patient reports he is feeling well and wants to go home. HR is controlled. DS: Diagnosis - Discharge Diagnosis (1) Alcohol intoxication Status: Acute (2) Atrial fibrillation with RVR Status: Acute (3) Delirium tremens Status: Acute (4) Hematuria Status: Acute DS: Medications - Discharge Medications Prescriptions: apixaban [Eliquis] 5 mg PO BID #60 tab diltiazem HCl [Cardizem LA] 240 mg PO BID #60 tab metoprolol tartrate 50 mg PO Q8HR #90 tab DS: Summary Hospital Course: 67 Y/O male admitted and treated for the following: Atrial fibrillation with RVR Persistently in A. fib despite addition of diltiazem, metoprolol, digoxin, with adjustments Continuing Eliquis Patient was cardioverted went back into A. fib RVR after cardioversion. Cardizem titrated and rate controlled. He is to follow up outpatient with Cardiology Hematuria = Secondary to patient pulling out Garcia while inebriated. Resolved. Will need to follow with primary care as outpatient. Alcoholism Patient had evidence of delirium tremens on admission Stable, he no longer has signs of DTs Anxiety. Treated with Ativan as needed. - Time Spent with Patient Total time spent providing and/or coordinating discharge services: Less than 30 minutes - Quality: VTE Deep Vein Thrombosis/Pulmonary Embolism Present on Admission: No Exam Vital signs: Vital Signs 05/02/18 13:00 05/02/18 14:00 05/02/18 15:00 Temperature 98.4 F Pulse Rate 104 H 92 H 96 H Respiratory Rate 18 Blood Pressure 130/77 Pulse Oximetry 99 05/02/18 16:00 05/02/18 17:00 05/02/18 18:00 Temperature Pulse Rate 82 89 83 Respiratory Rate Blood Pressure Pulse Oximetry 05/02/18 19:00 05/02/18 19:53 05/02/18 20:00 Temperature 98.6 F Pulse Rate 90 96 H 96 H Respiratory Rate 17 Blood Pressure 108/60 Pulse Oximetry 98 05/02/18 20:02 05/02/18 21:00 05/02/18 22:00 Temperature Pulse Rate 78 90 Respiratory Rate 18 Blood Pressure Pulse Oximetry 05/02/18 23:00 05/02/18 23:32 05/03/18 00:00 Temperature 98.4 F Pulse Rate 83 77 68 Respiratory Rate 18 Blood Pressure 99/62 L Pulse Oximetry 96 05/03/18 01:00 05/03/18 02:00 05/03/18 03:00 Temperature 98.4 F Pulse Rate 72 75 72 Respiratory Rate 17 Blood Pressure 104/60 Pulse Oximetry 98 05/03/18 04:00 05/03/18 05:00 05/03/18 06:24 Temperature Pulse Rate 75 89 76 Respiratory Rate Blood Pressure Pulse Oximetry 05/03/18 07:00 05/03/18 08:00 05/03/18 09:00 Temperature 97.8 F Pulse Rate 82 81 84 Respiratory Rate 18 Blood Pressure 117/74 Pulse Oximetry 99 05/03/18 10:00 05/03/18 11:00 Temperature 98.4 F Pulse Rate 92 H 81 Respiratory Rate 18 Blood Pressure 121/70 Pulse Oximetry 97 Intake & Output 05/02/18 05/03/18 05/03/18 18:59 06:59 18:59 Intake Total 1560 / 1560 420 / 420 Output Total 650 / 650 450 / 450 Balance 910 / 910 -30 / -30 Weight 94 kg Intake: Oral 1560 / 1560 420 / 420 Output: Urine 650 / 650 450 / 450 Other: Date of Last Bowel Movement 04/30/18 04/30/18 04/30/18 Narrative: GENERAL: This is a well-nourished, well-developed patient, in no apparent distress. CARDIOVASCULAR: Regular rate and rhythm without murmurs, gallops, or rubs. RESPIRATORY: Clear to auscultation. Breath sounds equal bilaterally. No wheezes , rales, or rhonchi. GASTROINTESTINAL: Abdomen soft, non-tender, nondistended. Normal active bowel sounds MUSCULOSKELETAL: Extremities without clubbing, cyanosis, or edema. NEURO: Alert & Oriented x4 to person, place, time, situation. Moves all ext x4 Results Procedures completed during hospitalization: Cardioversion - Impressions ITS Impressions Chest X-Ray 04/23/18 18:00 CONCLUSION: Mild bibasilar airspace opacities. Discharge Plan - Discharge Disposition Patient Disposition: 01 Discharge Home - Discharge Condition Condition: Good - Discharge Order Discharge Orders: Discharge Order (Routine); Ordered 05/03/18 Ordered By: Onel Day Cardiology Clear for Discharge (Routine); Ordered 05/03/18 Ordered By: Garland Yi - Physicians Team Primary Care Provider: Dequan Hernandez Attending Provider: Onel Day Other Providers: Griffin Oliveira MD ; Negro Zepeda MD ; Soheila Parnell ; Dominguez Fish DO ; Anabel Singleton MD
== END 2018-05-03 13:42 | disposition home or self-care (01) ==
LOC: PHED 17:38 → PHEDA 20:19 → PHICU 22:40 → UNDODISIN 04-27 10:42 → HCIS 05-01 09:03
PROVIDERS: ADMIT Family Medicine; ATTEND Family Medicine